=== PATIENT | female | born 1950 | race Caucasian/White ===

== ENCOUNTER 2017-12-12 08:43 | Inpatient (IN) | payer OTHER ==
[~2017-12-12] VITALS: Ht 167.6 cm; Wt 124.6 kg
--- NOTE | ~2017-12-12 | HC ---
[facility] [place] [address] CONSULTATION Name: EDWAR MARCUS Room #: 206-P ADM IN M.R.#: [id number] Admission: 12/12/17 Attend Phys: Brenda Logan Discharge: Date of : 52 Report #: [id number] THIS REPORT FOR: //name// CC: FAM unknown Brenda Logan ORTHOPEDIC CONSULT NOTE REASON FOR CONSULTATION: Right diabetic heel ulcer. HISTORY OF PRESENT ILLNESS: The patient reports noting a callus few weeks ago and subsequently developed into a heel ulcer. She was treated by wound care and admitted due to foul odor and possible osteomyelitis. She subsequently had an MRI, which confirmed calcaneal osteomyelitis. She reports decreased sensation to her foot that is normal for her. PAST MEDICAL HISTORY: Significant for peripheral artery disease, coronary artery disease, diabetes with nephropathy and neuropathy. SOCIAL HISTORY: She ambulates with a walker. Her granddaughter is at her bedside. Denies smoking or drinking alcohol. MEDICATIONS: The patient's MAR was reviewed, which shows atorvastatin, hydralazine, vancomycin, lisinopril, insulin, aspirin, allopurinol, metoprolol, enoxaparin, piperacillin, tazobactam, zolpidem tartrate, nitroglycerin, hydrocodone, and Tylenol. ALLERGIES: METFORMIN. REVIEW OF SYSTEMS: NEUROLOGIC: Reports decreased sensation, but does feel pain to her right foot. MUSCULOSKELETAL: See history of right third toe amputation few years ago due to a nonhealing wound and osteomyelitis. LABORATORY STUDIES: Done on 12/12/2017 show white blood cell count 14.9, hemoglobin 10.1 and hematocrit 31.9. PHYSICAL EXAMINATION: GENERAL: The patient is alert and oriented. She interacts appropriately. Her granddaughter is at her bedside. VITAL SIGNS: Most recent vital signs show temperature of 36.6, heart rate 69, respiratory rate 20, blood pressure 180/82, pulse oximetry is 98% on room air. EXTREMITIES: Examination of the right lower extremity shows a brisk capillary refill. She has diffuse moderate edema to the leg. I am unable to palpate a posterior tibial or dorsalis pedis pulse. She does wiggle her toes. She has absence of the third toe. She has about a 6 cm black eschar at her heel with surrounding cellulitis. [address] [address] CONSULTATION Name: EDWAR MARCUS Room #: [address] [place] [address] IN M.R.#: [id number] Admission: 12/12/17 Attend Phys: Brenda Logan Discharge: Date of : 52 Report #: [id number] RADIOGRAPHS: MRI was reviewed and interpreted by myself as well as the report was reviewed, which shows calcaneal osteomyelitis and the heel ulcer. IMPRESSION AND PLAN: Right calcaneal osteomyelitis in a diabetic patient with peripheral vascular disease. My understanding plan is for her to undergo a cardiac stent with evaluation of possible stent placement in order to improve blood flow in her right lower extremity. One of my [facility] partners will then follow her this weekend and consider debridement versus below-knee amputation. I briefly discussed with the patient that I am not optimistic that she will be able to heal this wound even with some improvement in her blood flow and she may require an amputation; however, I feel it is appropriate to give her this chance. Questions were encouraged and answered to the best of my ability. By: 1816 0032 Beckie Hancock MD /nt
--- NOTE | ~2017-12-12 | PATH ---
[facility] [address] [place] [address] PATHOLOGY RPT PROCEDURE Name: MEGAN WASHINGTON Room #: 206-P ADM IN M.R.#: [id number] Admission: 12/12/17 Date of : 52 Discharge: Report #: [id number] Path Case #: [id number] LCA Accession Number: [id number] . 01 Material submitted: . RIGHT BELOW KNEE AMPUTATION . 01 Clinical history: . Osteomyelitis, right foot . 02 Diagnosis: "Right below knee amputation", amputation: - Skin and subcutaneous tissue with acute and chronic inflammation, necrosis, granulation tissue, fibrosis, fat necrosis and overlying pseudoepitheliomatous hyperplasia. - Decalcified bone with fibrosis, predominantly chronic inflammation and extensive bony remodeling. - Vessels with calcific atherosclerosis. (CLW:db; 12/19/2017) LBQ/12/19/2017 . 02 Electronically signed: . Carly Painter MD, Pathologist NPI- [id number] . 01 Gross description: . Received in a red biohazard bag labeled "Megan Washington right BKA" is a right below the knee amputation specimen measuring 21.1 cm heel to toe and 34.8 cm heel to skin resection margin. Protruding from the resection margin is the fibula, 6.4 cm in length and tibia, 3.4 cm in length. The skin/bone margins appear grossly viable. Four toes are present with the middle toe absent. The remaining toes have nails which are yellow-staton, thickened, and flaky. The skin is pink with a black, mummified ulcer on the heel measuring 7.0 x 4.7 cm which extends to within 24.1 cm of the nearest resection margin. No additional lesions are identified. Sectioning the arteries reveals marked calcifications. Flooring Sales Manager sections are submitted as follows: . A1: Skin and soft tissue margin A2: Mummified lesion A3: Proximal bone marrow A4: Bone deep to lesion, decalcification A5: Arteries, decalcification (SDY; 12/18/2017) SYU/SYU . [address] [place] [address] PATHOLOGY RPT PROCEDURE Name: MEGAN WASHINGTON Room #: 206-P ADM IN M.R.#: [id number] Admission: 12/12/17 Date of : 52 Discharge: Report #: [id number] Path Case #: [id number] Performed at: [address], [place], [place] [id number] MD Roney Lindquist MD Phone: [phone] Performed at: [address] [id number] MD Tamara Parish MD Phone: [phone]
--- NOTE | ~2017-12-12 | O ---
[facility] [place] [address] OPERATIVE REPORT Name: EDWAR MARCUS Room #: 206-P ADM IN M.R.#: [id number] Admission: 12/12/17 Attend Phys: Brenda Logan Discharge: Date of : 52 Report #: [id number] THIS REPORT FOR: //name// CC: FAM unknown Brenda Logan DATE OF SERVICE: 12/16/2017 SERVICE: Orthopedics. FACILITY: [facility]. SURGEON: Milton Verma MD HEALTH INSURANCE AGENT: None. PREOPERATIVE DIAGNOSES: 1. Gangrene, right foot. 2. Calcaneal osteomyelitis, right foot. POSTOPERATIVE DIAGNOSES: 1. Gangrene, right foot. 2. Calcaneal osteomyelitis, right foot. PROCEDURE: Right below knee amputation. COMPLICATIONS: None. DRAINS: One Hemovac. SPECIMENS: Leg was sent for pathology. ESTIMATED BLOOD LOSS: 1000 mL. HISTORY: The patient is a 67-year-old female with multiple medical comorbidities and a chronic nonhealing wound on the right foot that had evolved to osteomyelitis with both dry and wet gangrene of the heel. She had pursued extensive conservative treatments and ultimately amputation was recommended as the best option. She considered this and then decided to proceed with the surgery and gave full informed consent. Risks include but not limited to pain, bleeding, infection, wound healing complications, stiffness, need for further surgery including revision as well as complications related to anesthesia such as stroke, heart attack, pulmonary complications, thromboembolic disease and . Despite these risks, she wished to proceed. PROCEDURE IN DETAIL: After right leg was correctly identified as the operative [facility] [address] [place] [address] OPERATIVE REPORT Name: EDWAR MARCUS Room #: 206-P ADM IN M.R.#: [id number] Admission: 12/12/17 Attend Phys: Brenda Logan Discharge: Date of : 52 Report #: [id number] extremity, the patient underwent placement of regional nerve blocks of the femoral and popliteal nerves by Anesthesia with goal to minimize the general anesthetic load for her considering her cardiac condition. She was then taken to the operating room and placed supine on operating table, padded appropriately. Prophylactic antibiotics were administered at appropriate time. A tourniquet was applied to the right thigh. Right leg was prepped and draped in standard sterile fashion. Time-out procedure was performed. The leg was elevated for exsanguination and then the tourniquet was inflated initially to 250 mmHg, but she was having some continued drainage and seepage, so eventually elevated to 350. This was performed after the time-out was completed. A skin incision was drawn on the right leg proximal to the venous stasis dermatitis that is present in the distal aspect of the leg and then the skin incision was made in a typical fashion. Dissection was taken down to the layer of the fascia with electrocautery, obtaining hemostasis as the patient had quite a few very large veins in the subcutaneous fat, which bled readily venous blood and were retaining a significant volume of blood. So, I diligently dissected out these vessels individually & obtained hemostasis during the procedure. The tibia was then exposed, periosteum was retracted proximally and then the tibial cut was made in a typical fashion. Dissection was taken down through the muscles of the anterior and lateral compartments until the fibula was visualized and the tibia was transected as well and the large vessel bundles in the leg were ligated with #1 silk ties and nerves were transected sharply. The posterior soft tissue flap was then cut in a typical fashion after the bone was transected and then there some debulking was performed and then the leg was fully removed. At this point, the wound was irrigated and then the posterior gastroc flap was brought over the distal aspect of the tibia and 0 Vicryl sutures were used to close the posterior muscle flap over the end of the tibia over a drain. After that was completed, the skin was closed with 2-0 Vicryl sutures followed by 3-0 nylon sutures in a diagonal mattress suture fashion. A sterile dressing was applied followed by compression dressing and a knee immobilizer. The patient was then awakened by the Anesthesia and taken to recovery room in stable condition. There were no complications. All counts were recorded as correct. <ELECTRONICALLY SIGNED> By: Milton Verma MD 12/16/17 1611 1223 1256 Milton Verma MD /nt
--- NOTE | ~2017-12-12 | HC ---
[facility] [place] [address] CONSULTATION Name: EDWAR MARCUS Room #: 206-P ADM IN M.R.#: [id number] Admission: 12/12/17 Attend Phys: Brenda Logan Discharge: Date of : 52 Report #: [id number] THIS REPORT FOR: //name// CC: FAM unknown Brenda Logan DATE OF SERVICE: 12/18/2017 NEPHROLOGY CONSULTATION ATTENDING PHYSICIAN: Dr. Logan. REASON FOR CONSULTATION: Acute kidney injury. HISTORY OF PRESENT ILLNESS: A 67-year-old patient with longstanding diabetes, peripheral vascular disease and peripheral neuropathy. She has had difficulty with bilateral foot ulcers in the past. Most recently, she had severe right foot ulcer with calcaneal osteomyelitis. She underwent angiographic procedure with atherectomy and stent placement to the vasculature of the right lower extremity and underwent a right [id number]-[id number]-[id number] amputation 2 days ago. She has had also an angiogram done approximately 1 week ago, which was a coronary angiogram showing multivessel severe coronary artery disease. Her serum creatinine was 1.3 at the time of admission, it has gradually risen and this has been also accompanied by a gradual decrease in her peripheral blood pressures. Creatinine was 1.3 three days ago, then 1.7 up to 2.2 yesterday, and 2.6 today. Potassium has risen from 4.4 to 6.1. PAST MEDICAL HISTORY: Appears to have underlying chronic kidney disease with a baseline creatinine of 1.3-1.4. She did have proteinuria on her initial evaluation, not quantitated. She has had hypertension. She has multivessel coronary disease as mentioned above, previous appendectomy, hysterectomy, cholecystectomy and previous diabetic foot ulcers as mentioned. FAMILY HISTORY: Strongly positive for coronary artery disease. She has a sister on dialysis. Multiple family members with diabetes and hypertension in a sister who had a heart transplant and . SOCIAL HISTORY: No history of cigarettes or alcohol. She is and lives alone. REVIEW OF SYSTEMS: GENERAL: She has been feeling poorly. EYES: Her vision is fair. She has not had known retinopathy. She has had cataract surgery. ENT: Hearing okay, swallows okay. No mouth ulcers. ENDOCRINE: Positive for the diabetes. [facility] [address] [place] [address] CONSULTATION Name: EDWAR MARCUS Room #: [address] [place] [address] IN M.R.#: [id number] Admission: 12/12/17 Attend Phys: Brenda Logan Discharge: Date of : 52 Report #: [id number] RESPIRATORY: Easily short winded with exertion in the past. CARDIAC: No chest pain. She does get swelling in her legs. GASTROINTESTINAL: Appetite has been somewhat poor, but no nausea, vomiting or diarrhea. GENITOURINARY: No dysuria, reasonably good stream. No kidney stones or hematuria. NEUROLOGIC: She has got numbness and neuropathy in the feet. PSYCHIATRIC: No depression or anxiety. HOME MEDICATIONS: Include aspirin 325 mg daily, atorvastatin 20 mg daily, cefazolin 1 gram daily, clopidogrel 75 mg daily, Lovenox 30 mg at bedtime, hydrocodone p.r.n., insulin, metoprolol tartrate 100 mg b.i.d., amlodipine 10 mg daily, lisinopril 20 mg daily. PHYSICAL EXAMINATION: GENERAL: This is an overweight, somewhat ill-appearing woman, giving a reasonably good and lucid history, also taken from the electronic medical record. SKIN: Unremarkable. SKELETAL: Right below-knee amputation noted. HEENT: Extraocular movements are full. Vision intact. No scleral icterus. Hearing intact. Mucous membranes are moist. Tongue and buccal mucosa benign. NECK: Veins are flat. CHEST: Clear to auscultation. HEART: Regular. ABDOMEN: Soft and completely nontender. EXTREMITIES: Show some brawny edema of the left leg amputation site on the right. NEUROLOGIC: Shows some numbness in the left foot. LABORATORY DATA: Hemoglobin 6.8, white count 14.1. Glucose is 248. Sodium 134, potassium 6.1, chloride 103, bicarbonate 23, creatinine 2.6, BUN 46, calcium 7.9, phosphorus 6.7. ASSESSMENT AND PLAN: 1. Acute kidney injury. She has some chronic kidney disease, some proteinuria, likely underlying diabetic nephropathy, now acute kidney injury. She has had two dye loads. She has had pretty drastic lowering of her mean arterial pressure. She has been on a converting enzyme inhibitor, all of which are probably contributing to acute renal injury. Lisinopril has been stopped. I will give her some gentle IV fluids, stop the Norvasc and try to get her blood pressure up a little bit. The treatment of the elevated glucose along with the Kayexalate should lower her potassium satisfactorily. Her EKG does not show any serious hyperkalemic changes. I expect her to improve here over the next few days and we will follow her closely. 2. Status post right BKA. [facility] [address] [place] [address] CONSULTATION Name: EDWAR MARCUS Room #: 206-P [facility] IN M.R.#: [id number] Admission: 12/12/17 Attend Phys: Brenda Logan Discharge: Date of : 52 Report #: [id number] 3. Severe multivessel coronary artery disease. 4. Diabetes mellitus with neuropathy and nephropathy. 5. Severe peripheral vascular disease. <ELECTRONICALLY SIGNED> By: Bart Hills MD 12/20/17 1022 0934 1230 Bart Hills MD /nt
--- NOTE | ~2017-12-12 | HC ---
[facility] [place] [address] CONSULTATION Name: EDWAR MARCUS Room #: 206-P ADM IN M.R.#: [id number] Admission: 12/12/17 Attend Phys: Brenda Logan Discharge: Date of : 52 Report #: [id number] THIS REPORT FOR: //name// CC: FAM unknown Brenda Logan DATE OF SERVICE: 12/13/2017 CHIEF COMPLAINT: Right heel ulceration. HISTORY OF PRESENT ILLNESS: This is a 67-year-old female patient with a history of diabetes mellitus and known peripheral arterial disease, who has had multiple small ulcerations to her right foot and history of osteomyelitis in the past. She has had previous right third toe amputation, which has healed well. Over the last at least several weeks, possibly months, she has developed a small ulceration on her right heel; however, it has become progressively necrotic and malodorous. She was initially followed at an [facility] and has now been referred for more definitive care here. The patient does complain of significant pain involving her foot. She states that the pain has become almost unrelenting. She has been taking oral Bactrim, although a little improvement has been noted. PAST MEDICAL HISTORY: Positive for history of type 2 diabetes mellitus with peripheral neuropathy. She has a history of coronary artery disease, history of peripheral vascular disease, although she was noted to have multilevel stenoses including 70% tibioperoneal stenosis and possible right SFA stenosis. No intervention has yet been undertaken. She as well has a history of the diabetic ulceration as detailed above. CURRENT MEDICATIONS: Include Bactrim, insulin, aspirin, lisinopril, allopurinol, vancomycin, enoxaparin, Zosyn, zolpidem, nitroglycerin. ALLERGIES: METFORMIN. SOCIAL HISTORY: Negative for alcohol or tobacco use. FAMILY HISTORY: Noncontributory. REVIEW OF SYSTEMS: CONSTITUTIONAL: The patient denies fever, chills or weight loss. NEUROLOGICAL: The patient has peripheral neuropathy. Denies focal weakness, numbness, tingling. EYES: The patient denies visual changes, redness or drainage. ENT: The patient denies earache, nasal drainage or sore throat. CARDIOVASCULAR: The patient denies chest pain, palpitations, diaphoresis. PULMONARY: The patient denies cough or shortness of breath. [address] [address] CONSULTATION Name: EDWAR MARCUS Room #: [address] [place] [address] IN M.R.#: [id number] Admission: 12/12/17 Attend Phys: Brenda Logan Discharge: Date of : 52 Report #: [id number] GASTROINTESTINAL: The patient denies nausea, vomiting or abdominal pain. ORTHOPEDIC: The patient complained of significant pain and drainage and necrosis involving her right foot, specifically the heel area. Other systems in a 14-point review of systems are negative. PHYSICAL EXAMINATION: VITAL SIGNS: At this time include pulse rate 69, respiration 20, blood pressure 180/82, temperature 97.8. HEENT: Normocephalic. NOSE AND THROAT: Clear. LUNGS: Clear. HEART: Regular rhythm. ABDOMEN: Bowel sounds present. Examination of the abdomen is soft and nontender. EXTREMITIES: Lower extremities demonstrate nonpalpable distal pulses, pink. SKIN: [place], warm and dry. She has 2 to 3+ edema in both lower extremities, more so on the right than the left. She has a surgically absent right third toe that appears to have healed well. She has a very large ulceration involving her right heel, it is covered with a moist eschar. There is moderate odor and it is very tender at the ulceration as well as in the surrounding region. NEUROLOGIC: She is alert and oriented and appropriate. Moving all 4 extremities spontaneously. LABORATORY DATA: Includes sodium 130, potassium 4.5, chloride 95, CO2 27, BUN 22, creatinine 1.4, glucose 298. Total bilirubin 0.2, calcium is 9.3, alkaline phosphatase 111, SGPT is 10, total protein 7.1, albumin 2.1. White blood cell count is 14.9, hemoglobin 10.1, hematocrit 31.9, platelet count is 325,000. Sed rate is very elevated at 118. TSH is 2.37. Wound cultures obtained at the bedside today, result is obviously pending at this time. MRI of the right foot demonstrates osteomyelitis involving the plantar surface of the calcaneus at the plantar aponeurosis with adjacent ulceration, reticular subcutaneous edema and soft tissue gas. No underlying well-defined abscess is seen. CLINICAL IMPRESSION: 1. Diabetic and arterial based ulceration of the right posterior heel. 2. Diabetic foot infection, Andrade grade 3. 3. Peripheral arterial disease by history and clinical examination. 4. Coronary artery disease by history. RECOMMENDATIONS: At this point in time, agree with broad-spectrum antimicrobial coverage. She will clearly need debridement; however, the debridement required may be extensive and leave her with a nonfunctional foot and may actually better benefit from igher level amputations at the below knee region. We will ask Interventional Radiology to see her with regard to possible percutaneous revascularization. She is being followed by Cardiology as well regarding further evaluation and treatment of her coronary artery disease. We will [address] [address] CONSULTATION Name: EDWAR MARCUS Room #: 206-P ADM IN M.Savita.#: [id number] Admission: 12/12/17 Attend Phys: Brenda Logan Discharge: Date of : 52 Report #: [id number] recommend aggressive nutritional support for optimal glycemic control and maximum wound healing. Recommend Prevalon boots while in bed. All questions have been answered. The patient is reluctant, but is agreeable to considering a below-knee amputation should we find that the foot is not salvageable. I do appreciate being asked to see her in consultation. We will follow her closely here in the hospital. <ELECTRONICALLY SIGNED> By: Michael Rincon MD 12/17/17 0819 1621 08 Michael Rincon MD /nt
--- NOTE | ~2017-12-12 | CATHLAB ---
[facility] [address] [place] [address] INVASIVE PROCEDURE REPORT Name: EDWAR MARCUS Room #: 206-P ADM IN M.R.#: [id number] Admission: 12/12/17 Attend Phys: Brenda Zuluaga Discharge: Date of : 52 Date of Service: 12/17/17 1031 Report #: [id number] THIS REPORT FOR: //name// APPROVED REPORT Study performed: 12/14/2017 12:23:21 Patient Details Patient Status: In-Patient Room #: The patient is a 67 year-old female Event Personnel Luis Burnett MD; Shad Lugo; Octavia Laird; Nisha Cochran; Chris Ness Procedures Performed Art Access - R femoral artery* 05191 Initial Mod Sed Same Phys/QHP Gr5y [id number] Left Heart Cath w/or w/o Coronaries [id number] C Hemostasis w/ Mynx Indication Chest pain Procedure Narrative The patient was brought urgently to the Cardiac Catheterization Laboratory and was prepped and draped in a sterile manner. The LFG^ was infiltrated with 1% Lidocaine subcutaneous anesthesia. A 6 fr sheath sheath was inserted into the LFA. Coronary angiography was performed using coronary diagnostic catheters. The right coronary system was accessed and visualized with a JR 4 catheter. The left coronary system was accessed and visualized with a JL 4 catheter. The left ventricle was accessed and visualized with a Pigtail catheter. Left ventricular/Aortic Valve gradient assessed via catheter pullback. Closure device was deployed with a 6 Fr Mynx. The patient tolerated the procedure well and there were no complications associated with the procedure. There was no hematoma. Intraoperative Conscious Sedation Sedation start time: 12:48 Case end Time: 12:55 Versed 1 mg Fluoro Time: 1.10 minutes Dose: DAP 3003.50 cGycm2 420 mGy Contrast Type and Amount: Omnipaque 50 ml [facility] [place] [address] INVASIVE PROCEDURE REPORT Name: AMRITEDWAR GIORDANO Room #: 206-P [facility] IN ..#: [id number] Admission: 12/12/17 Attend Phys: Brenda Zuluaga Discharge: Date of : 52 Date of Service: 12/17/17 1031 Report #: [id number] Coronary Angiography The patient's coronary anatomy is right dominant. Diagnostic Cath Left Main Normal origin and caliber bifurcates into left anterior descending left circumflex. There is a significant distal lesion involving the origin of the circumflex and LAD which appears to be at least 70% this area is highly calcified LAD Small-caliber vessel diffusely diseased has a significant greater than 75% lesion in its ostium. Then continues on giving rise to small diagonal branches towards the apex and the anterior interventricular sulcus with moderate to diffuse lesions noted throughout its course Diagonal 1 Small-caliber vessel with diffuse coronary disease noted Circumflex Small-caliber vessel normal origin has a proximal 70% lesion noted which is calcified. It then continues on terminating a small lateral wall marginal branches which are less than half a millimeter in diameter is diffuse disease OM1 Small highly disease OM2 Small highly disease Right Coronary Caliber vessel normal origin procedures in the AV groove there is there is a 75% eccentric lesion in proximal course. It gives her to small marginal branches which is diffusely diseased. Then continues posteriorly to the crux of the heart reveals rise to posterior descending artery and posterior wall branch R PDA Small-caliber vessel with mild irregularities noted in the proximal stenotic lesion of under 50%. It then courses in the posterior interventricular sulcus towards the apex with diffuse mild to moderate irregularities RPLV Mall caliber vessel diffusely disease at less than 50% Left Ventriculography Left Ventriculography was not performed. Hemodynamics The aortic pressure is 175/85 mmHg with a mean of 123 mmHg. The left ventricular pressure is 188/30 mmHg with a mean of mmHg. The left ventricular end diastolic pressure is 49 mmHg. Conclusion 1. Coronary disease severe involving the left main and ostial left circumflex and left anterior descending artery 2. Abnormal hemodynamic elevated liver ventricular end-diastolic [facility] [address] [place] [address] INVASIVE PROCEDURE REPORT Name: EDWAR MARCUS Room #: 206-P ADM IN M.R.#: [id number] Admission: 12/12/17 Attend Phys: Brenda Zuluaga Discharge: Date of : 52 Date of Service: 12/17/17 1031 Report #: [id number] Recommendations CABG <ELECTRONICALLY SIGNED> By: Luis Burnett MD 12/17/171030 30 30 Luis Burnett MD /INF
[2017-12-12 14:15] VITALS: BP 175/86
[2017-12-12 15:13] LABS: HEMATOCRIT 31.9 % (37.0-47.0); HEMOGLOBIN 10.1 gm/dL (12.0-15.0); MCH 25.3 pg (26.0-34.0); MCHC 31.8 g/dL (28.0-37.0); MCV 79.5 fL (80.0-100.0); RBC 4.01 mil/uL (4.20-5.00); RDW 19.6 % (10.5-14.5); WBC 14.9 thou/uL (4.0-11.0)
[2017-12-12 15:24] LABS: CALCIUM 9.3 mg/dL (8.5-10.1); CREATININE 1.4 mg/dL (0.6-1.0); POTASSIUM 4.5 mmol/L (3.5-5.1)
[2017-12-12 15:29] LABS: ALBUMIN 2.1 g/dL (3.4-5.0); TOTAL BILIRUBIN 0.2 mg/dL (<0.1-1.0); TOTAL PROTEIN 7.1 g/dL (6.4-8.2)
[2017-12-12 15:31] LABS: CHOLESTEROL 162 mg/dL (<200); HDL CHOLESTEROL 44 mg/dL (>40); LDL CHOLESTEROL 98 mg/dL (<100); TC:HDL 3.7 Ratio (Not establshd); TRIGLYCERIDE 100 mg/dL (<150); VLDL 20 mg/dL (<40)
[2017-12-12 15:35] LABS: SERUM ASSESSMENT Clear
[2017-12-12] MEDS ORDERED: NORVASC5 MG PO (15:49)
[2017-12-12] MEDS ORDERED: ALLOPURINOL 10100 M1 PO (15:49)
[2017-12-12] MEDS ORDERED: ADULT ASPIRIN81 MG PO (15:50)
[2017-12-12] MEDS ORDERED: BACTRIM 400-801 EACH PO (15:51)
[2017-12-12] MEDS ORDERED: BACTROBAN CREAM30 G1 TOP (15:52)
[2017-12-12] MEDS ORDERED: LASIX 40 MG TAB40 M2 PO (15:52)
[2017-12-12] MEDS ORDERED: FOSAMAX 70 MG T70 MG PO (15:52)
[2017-12-12] MEDS ORDERED: LISINOPRIL20 MG PO (15:53)
[2017-12-12] MEDS ORDERED: HYDROCODONE-AP1 EAC6 PO (15:53)
[2017-12-12] MEDS ORDERED: LOPRESSOR100 M1 PO (15:54)
[2017-12-12] MEDS ORDERED: LOVASTATIN 20 M20 MG PO (15:54)
[2017-12-12 15:57] LABS: TSH 2.377 uIU/mL (0.358-3.740)
[2017-12-12] MEDS ORDERED: NOVOLOG100 UNIT/1 SUBQ (16:02)
[2017-12-12] MEDS ORDERED: LEVEMIR SUBQ (16:03)
[2017-12-12 16:05] VITALS: BP 173/79
[2017-12-12 20:12] VITALS: BP 152/68
[2017-12-12 20:24] LABS: URINE BILIRUBIN NEGATIVE (Negative); URINE BLOOD 1+ (Negative); URINE CLARITY CLEAR; URINE COLOR YELLOW; URINE GLUCOSE-RANDOM* 2+ (Negative); URINE KETONES NEGATIVE (Negative); URINE LEUKOCYTES NEGATIVE (Negative); URINE NITRITE NEGATIVE (Negative); URINE PROTEIN (DIPSTICK) 2+ (Negative); URINE UROBILINOGEN 0.2 E.U./dl (0.2-1.0)
[2017-12-13 03:47] VITALS: BP 163/72
[2017-12-13 04:07] LABS: GLYCOHEMOGLOBIN (HGB A1C) 10.7 % (4.8-5.6)
[2017-12-13 07:50] VITALS: BP 172/67
[2017-12-13 11:44] VITALS: BP 142/64
[2017-12-13 15:26] VITALS: BP 180/82
[2017-12-13 19:18] VITALS: BP 148/59
[2017-12-14 00:19] VITALS: BP 151/64
[2017-12-14 04:56] VITALS: BP 164/65
[2017-12-14 07:35] VITALS: BP 176/90
[2017-12-14 19:16] VITALS: BP 149/69
[2017-12-15 00:08] VITALS: BP 117/44
[2017-12-15 04:36] LABS: HEMATOCRIT 28.9 % (37.0-47.0); HEMOGLOBIN 9.1 gm/dL (12.0-15.0); MCH 25.3 pg (26.0-34.0); MCHC 31.7 g/dL (28.0-37.0); MCV 79.9 fL (80.0-100.0); RBC 3.61 mil/uL (4.20-5.00); RDW 19.8 % (10.5-14.5); WBC 13.1 thou/uL (4.0-11.0)
[2017-12-15 04:47] LABS: ALBUMIN 1.7 g/dL (3.4-5.0); CALCIUM 8.5 mg/dL (8.5-10.1); CREATININE 1.3 mg/dL (0.6-1.0); PHOSPHORUS 4.5 mg/dL (2.5-4.9); POTASSIUM 4.4 mmol/L (3.5-5.1)
[2017-12-15 05:37] VITALS: BP 154/69
[2017-12-15 08:16] VITALS: BP 175/66
[2017-12-15 11:40] VITALS: BP 147/60
[2017-12-15 16:00] VITALS: BP 135/57
[2017-12-15 19:23] VITALS: BP 142/75
[2017-12-16] VITALS (11 sets, daily range): BP systolic 107–154; BP diastolic 43–63
[2017-12-16 04:54] LABS: HEMATOCRIT 27.4 % (37.0-47.0); HEMOGLOBIN 8.8 gm/dL (12.0-15.0); MCH 25.6 pg (26.0-34.0); MCHC 32.2 g/dL (28.0-37.0); MCV 79.6 fL (80.0-100.0); RBC 3.43 mil/uL (4.20-5.00); RDW 19.6 % (10.5-14.5); WBC 11.5 thou/uL (4.0-11.0)
[2017-12-16 05:28] LABS: ALBUMIN 1.7 g/dL (3.4-5.0); CALCIUM 8.6 mg/dL (8.5-10.1); CREATININE 1.7 mg/dL (0.6-1.0); PHOSPHORUS 4.7 mg/dL (2.5-4.9); POTASSIUM 4.5 mmol/L (3.5-5.1)
[2017-12-16 06:28] LABS: APTT 26.1 Seconds (24.5-32.8); PROTIME 9.7 Seconds (9.3-11.4)
[2017-12-16 16:00] LABS: HEMATOCRIT 24.4 % (37.0-47.0); HEMOGLOBIN 7.8 gm/dL (12.0-15.0)
[2017-12-17] VITALS (7 sets, daily range): BP systolic 86–133; BP diastolic 32–65
[2017-12-17 04:02] LABS: ALBUMIN 1.5 g/dL (3.4-5.0); CALCIUM 8.1 mg/dL (8.5-10.1); CREATININE 2.2 mg/dL (0.6-1.0); PHOSPHORUS 5.9 mg/dL (2.5-4.9); POTASSIUM 5.2 mmol/L (3.5-5.1)
[2017-12-17 04:04] LABS: TROPONIN-I 0.91 ng/mL (<0.06)
[2017-12-17 04:08] LABS: HEMATOCRIT 18.9 % (37.0-47.0); HEMOGLOBIN 6.3 gm/dL (12.0-15.0)
[2017-12-17 10:17] LABS: HEMATOCRIT 21.6 % (37.0-47.0); HEMOGLOBIN 7.1 gm/dL (12.0-15.0)
[2017-12-17 22:02] LABS: HEMATOCRIT 21.6 % (37.0-47.0); HEMOGLOBIN 7.1 gm/dL (12.0-15.0)
[2017-12-18] VITALS (8 sets, daily range): BP systolic 86–124; BP diastolic 35–71
[2017-12-18 04:10] LABS: HEMOGLOBIN 6.8 gm/dL (12.0-15.0); WBC 14.1 thou/uL (4.0-11.0)
[2017-12-18 04:11] LABS: HEMATOCRIT 21.1 % (37.0-47.0); MCH 27.1 pg (26.0-34.0); MCHC 32.4 g/dL (28.0-37.0); MCV 83.6 fL (80.0-100.0); RBC 2.53 mil/uL (4.20-5.00); RDW 18.2 % (10.5-14.5)
[2017-12-18 04:31] LABS: ALBUMIN 1.7 g/dL (3.4-5.0); CALCIUM 7.9 mg/dL (8.5-10.1); CREATININE 2.6 mg/dL (0.6-1.0); PHOSPHORUS 6.7 mg/dL (2.5-4.9)
[2017-12-18 04:33] LABS: POTASSIUM 6.1 mmol/L (3.5-5.1)
[2017-12-18 14:20] LABS: HEMATOCRIT 24.8 % (37.0-47.0); HEMOGLOBIN 8.2 gm/dL (12.0-15.0)
[2017-12-19 03:47] LABS: ABSOLUTE NEUTROPHILS 11.2 thou/uL (1.4-8.2); BASOPHILS 0.8 % (0.0-2.0); EOSINOPHILS 1.4 % (0.0-3.0); HEMATOCRIT 23.9 % (37.0-47.0); HEMOGLOBIN 7.8 gm/dL (12.0-15.0); MCH 27.4 pg (26.0-34.0); MCHC 32.8 g/dL (28.0-37.0); MCV 83.7 fL (80.0-100.0); MONOCYTES 7.3 % (1.0-8.0); PLATELET COUNT 373 thou/uL (150-400); POLYS 80.5 % (36.0-66.0); RBC 2.86 mil/uL (4.20-5.00); RDW 18.1 % (10.5-14.5); WBC 13.9 thou/uL (4.0-11.0)
[2017-12-19 03:54] LABS: ALBUMIN 1.7 g/dL (3.4-5.0); CALCIUM 8.1 mg/dL (8.5-10.1); CREATININE 2.3 mg/dL (0.6-1.0); PHOSPHORUS 6.3 mg/dL (2.5-4.9); POTASSIUM 4.6 mmol/L (3.5-5.1)
[2017-12-19 04:24] VITALS: BP 129/56
[2017-12-19 07:49] VITALS: BP 139/66
[2017-12-19] MEDS ORDERED: CLOPIDOGREL75 MG PO (09:18)
[2017-12-19] MEDS ORDERED: KEFLEX500 M1 PO (09:18)
[2017-12-19] MEDS ORDERED: LANTUS100 UNIT/M SUBQ (09:19)
[2017-12-19] MEDS ORDERED: ACETAMINOPHEN325 M1 PO (09:19)
[2017-12-19] MEDS ORDERED: MIRALAX17 GM PO (09:19)
[2017-12-19] MEDS ORDERED: NOVOLOG100 UNIT/1 SUBQ ×2 (09:19)
[2017-12-19] MEDS ORDERED: LYRICA 50 MG50 MG PO (09:20)
[2017-12-19 11:31] VITALS: BP 143/73
[2017-12-19 15:42] VITALS: BP 115/51
[2017-12-19 19:30] VITALS: BP 152/74
[2017-12-20 03:57] LABS: ALBUMIN 1.7 g/dL (3.4-5.0); CREATININE 1.7 mg/dL (0.6-1.0); PHOSPHORUS 5.4 mg/dL (2.5-4.9); POTASSIUM 5.2 mmol/L (3.5-5.1)
[2017-12-20 04:40] VITALS: BP 147/59
[2017-12-20 07:35] VITALS: BP 122/72
== END 2017-12-20 10:43 | DRG 853 ==
LOC: CATH 08:43 → EDSTATUS 13:36 → 2N 13:38
PROVIDERS: Hospitalist; Internal Medicine Nephrology; Nurse Practitioner Acute Care; Orthopaedic Surgery Sports Medicine
PROC: B4181ZZ Fluoroscopy of Bilateral Renal Arteries using Low Osmolar Contrast (ICD-10-PCS; principal; 2017-12-14)
PROC: B41F1ZZ Fluoroscopy of Right Lower Extremity Arteries using Low Osmolar Contrast (ICD-10-PCS; principal; 2017-12-14)
PROC: B41G1ZZ Fluoroscopy of Left Lower Extremity Arteries using Low Osmolar Contrast (ICD-10-PCS; principal; 2017-12-14)
PROC: 04CP3ZZ Extirpation of Matter from Right Anterior Tibial Artery, Percutaneous Approach (ICD-10-PCS; principal; 2017-12-14)
PROC: 0Y6H0Z2 Detachment at Right Lower Leg, Mid, Open Approach (ICD-10-PCS; 2017-12-16)
PROC: 30233N1 Transfusion of Nonautologous Red Blood Cells into Peripheral Vein, Percutaneous Approach (ICD-10-PCS; 2017-12-16)
PROC: B2111ZZ Fluoroscopy of Multiple Coronary Arteries using Low Osmolar Contrast (ICD-10-PCS; 2017-12-17)
PROC: 4A023N7 Measurement of Cardiac Sampling and Pressure, Left Heart, Percutaneous Approach (ICD-10-PCS; 2017-12-17)
PROC: 5A09357 Assistance with Respiratory Ventilation, Less than 24 Consecutive Hours, Continuous Positive Airway Pressure (ICD-10-PCS; 2017-12-20)
DX: A41.9 Sepsis, unspecified organism (principal); E43 Unspecified severe protein-calorie malnutrition; N17.0 Acute kidney failure with tubular necrosis; E11.52 Type 2 diabetes mellitus with diabetic peripheral angiopathy with gangrene; I96 Gangrene, not elsewhere classified; I50.30 Unspecified diastolic (congestive) heart failure; I13.0 Hypertensive heart and chronic kidney disease with heart failure and stage 1 through stage 4 chronic kidney disease, or unspecified chronic kidney disease; D62 Acute posthemorrhagic anemia; Z68.41 Body mass index [BMI] 40.0-44.9, adult; R94.39 Abnormal result of other cardiovascular function study; E11.42 Type 2 diabetes mellitus with diabetic polyneuropathy; E11.622 Type 2 diabetes mellitus with other skin ulcer; E11.69 Type 2 diabetes mellitus with other specified complication; N18.9 Chronic kidney disease, unspecified; E78.5 Hyperlipidemia, unspecified; M19.90 Unspecified osteoarthritis, unspecified site; M81.0 Age-related osteoporosis without current pathological fracture; J44.9 Chronic obstructive pulmonary disease, unspecified; Z60.2 Problems related to living alone; E11.621 Type 2 diabetes mellitus with foot ulcer; L89.152 Pressure ulcer of sacral region, stage 2; I70.213 Atherosclerosis of native arteries of extremities with intermittent claudication, bilateral legs; L89.302 Pressure ulcer of unspecified buttock, stage 2; E87.5 Hyperkalemia; E66.01 Morbid (severe) obesity due to excess calories; E11.22 Type 2 diabetes mellitus with diabetic chronic kidney disease; G47.33 Obstructive sleep apnea (adult) (pediatric); Z88.8 Allergy status to other drugs, medicaments and biological substances; Z90.49 Acquired absence of other specified parts of digestive tract; Z82.49 Family history of ischemic heart disease and other diseases of the circulatory system; Z87.891 Personal history of nicotine dependence; Z79.82 Long term (current) use of aspirin; Z79.899 Other long term (current) drug therapy
CPT/HCPCS: 10081; 50101; 62110; 62900; 70005

== ENCOUNTER 2017-12-19 09:50 | Inpatient (IN) | payer OTHER ==
[~2017-12-19] VITALS: Ht 167.6 cm; Wt 124.5 kg
--- NOTE | ~2017-12-19 | HC ---
[facility] [place] [address] [address] [place] [address] CONSULTATION Name: EDWAR MARCUS Room #: 516-1 ADM IN M.R.#: [id number] Admission: 12/20/17 Attend Phys: Shad Ferguson MD Discharge: Date of : 52 Report #: [id number] THIS REPORT FOR: //name// CC: Shad Ferguson [facility] unknown DATE OF SERVICE: 12/29/2017 NEUROBEHAVIORAL STATUS EXAM AGE: 67. ATTENDING PHYSICIAN: Shad Ferguson MD CALENDERER: Paulo Pal, PhD CLINICAL PRESENTATION: The patient is a 67-year-old female admitted to the rehab unit at [facility] for a comprehensive inpatient rehabilitation program to improve functional mobility, activities of daily living and self-care and mental status secondary to deficits from a tnixr-nyb-nezm amputation on 12/16/2017. The patient had a nonhealing right foot ulcer and developed osteomyelitis. Her medical condition also includes severe peripheral vascular disease, status post atherectomy and angioplasty, severe 3-vessel coronary artery disease with a need for coronary artery bypass grafting, poorly controlled diabetes mellitus type 2, premorbid peripheral neuropathy, congestive heart failure and chronic lymphedema. A complete description of her medical condition, history and medications can be found in her medical record. Neuropsychological consultation was requested to provide assistance in the assessment of cognitive and emotional status and to provide recommendations and services. The patient was living independently in a mobile home prior to this most recent admission. She had one child that was killed about 9 years ago from a car accident and was 10 years ago. She has one living child. A sister lives nearby in a mobile home. The patient has been on disability because of the diabetes mellitus. 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 There is no report of prior history of treatment for depression or anxiety or alcohol/ drug abuse. TECHNIQUES UTILIZED: Clinical interview, review of medical records, staff consultation and behavioral observation, mini mental status exam 2 standard version, category fluency, brief abstract reasoning test. EXAMINATION FINDINGS: The patient was alert and cooperative with the assessment. She accurately described events surrounding her admission. There is no evidence of aphasia. Her thoughts are logical and goal oriented. There [facility] [address] [place] [address] CONSULTATION Name: EDWAR MARCUS Room #: 516-1 [facility] IN [facility].#: [id number] Admission: 12/20/17 Attend Phys: Shad Ferguson MD Discharge: Date of : 52 Report #: [id number] is no evidence of thought disorder. She does not report auditory or visual hallucinations. She describes symptoms to include tiredness and fatigue. Variability in memory is reported. She does not report difficulty with sleep, appetite or subjective depression. The patient also does not indicate feelings of anxiety. Phantom limb pain is reported as intermittent, and severe at times. Performance on the mini mental status exam reveals functioning within normal limits on the brief version. She was 3/3 for initial registration, 5/5 for orientation to time and place and 1/3 for immediate recall of 3 items after a brief time delay and distraction. Performance on the MMSE 2 standard version is in the mild range of impairment with a raw score of 24 of 30. The patient was 1 of 5 for serial 7's. She was able to copy a simple geometric design and write a sentence. Decreased upper extremity dexterity is noted. Her performance in category fluency was extremely low with a raw score of 22 and a T score of 25, which is at the 1st percentile. Brief abstract reasoning assessment was poor with a raw score of 2 of 8. The patient is presenting with deficits in higher level executive functioning. Brief abstract reasoning, attention and concentration and poor thought organization for generative speech suggests cognitive disorder. DIAGNOSTIC IMPRESSION: Neurocognitive disorder, due to medical etiology-extent to be determined, likely in the moderate range. RECOMMENDATIONS: The patient will very likely require assistance in the management of medication, finances and nutrition upon her discharge home. Increased assistance to maintain safety will be necessary during problem solving and planning. She is lacking awareness of her limitations and need for support. Follow up neuropsych assessment following stabilization of her medical condition and bypass surgery will be helpful in clarifying the severity of cognitive deficits. Thank you very much for allowing me to provide the consultation on this patient. <ELECTRONICALLY SIGNED> By: Paulo Pal, PhD 12/31/17 1815 1455 1607 Paulo Pal, PhD /nt
--- NOTE | ~2017-12-19 | D ---
[facility] [place] [address] [place] [address] DISCHARGE SUMMARY Name: EDWAR MARCUS Room #: 516-1 DIS IN M.R.#: [id number] Admission: 12/20/17 Attend Phys: Shad Ferguson MD Discharge: 01/03/18 Date of : 52 Report #: [id number] THIS REPORT FOR: //name// CC: Shad Ferguson [facility] unknown DATE OF SERVICE: 01/03/2018 HISTORY OF PRESENT ILLNESS: The patient is a 67-year-old white female with a right heel wound with calcaneal osteomyelitis, underwent right below-knee amputation on 12/19/2017. She had a preop cardiac workup, which showed severe coronary artery disease and the plan is that she will need CABG surgery once medically stable. She was admitted for acute in-hospital inpatient rehabilitation post the below knee amputation. Please see the full admission note dictation. HOSPITAL COURSE: She was followed on the acute inpatient rehab schmitz. She was given IV iron for iron deficiency anemia. She was treated for pneumonia, was noted to have acute on chronic respiratory failure secondary to volume overload with CHF exacerbation and she was given diuretics as per Nephrology. She was working in therapies with transfers utilizing the sliding board, max assist of 1 to 2, was working on short distance wheelchair mobility. Was unable to sit to stand even with max assist in upper extremity support with the parallel bars. Her course was complicated by her pulmonary condition and earlier today, she became lethargic and ABG obtained, was significantly abnormal. She was placed on CPAP without recovery and transferred to the critical care floor to be placed on BiPAP. She was diagnosed with acute hypoxic and hypercapnic respiratory failure. We will defer further medications and activity level, etc. as per the accepting service. DISCHARGE DIAGNOSES: Would include, 1. Status post below-knee amputation. 2. Acute on chronic respiratory failure. 3. Medical complexity with generalized debilitation. 4. Iron deficiency anemia. 5. Pneumonia. 6. Severe peripheral vascular disease, status post atherectomy and angioplasty. 7. Severe 3-vessel coronary artery disease, will need future coronary artery bypass grafting. 8. Poorly controlled diabetes mellitus. [facility] [address] [place] [address] DISCHARGE SUMMARY Name: AAN MARCUSJACI Barney Room #: 516-1 DIS IN M.R.#: [id number] Admission: 12/20/17 Attend Phys: Shad Ferguson MD Discharge: 01/03/18 Date of : 52 Report #: [id number] 9. Premorbid peripheral neuropathy. 10. Congestive heart failure with chronic lymphedema. <ELECTRONICALLY SIGNED> By: Shad Ferguson MD 01/04/18 1228 1250 1432 Shad Ferguson MD /nt
--- NOTE | ~2017-12-19 | H ---
[facility] [place] [address] [place] [address] HISTORY AND PHYSICAL Name: EDWAR MARCUS Room #: 516-1 ADM IN M.R.#: [id number] Admission: 12/20/17 Attend Phys: Shad Ferguson MD Discharge: Date of : 52 Report #: [id number] THIS REPORT FOR: //name// CC: Shad Ferguson [facility] unknown DATE OF SERVICE: 12/20/2017 HISTORY OF PRESENT ILLNESS: This is a 67-year-old female who originally presented to [facility] Emergency Department with a right heel wound for 2 weeks that had been unresponsive to outpatient antibiotics. She was transferred to [facility] due to chest pain reported and further workup that was required. Her MRI of the right foot found calcaneal osteomyelitis with soft tissue gas and underwent a right ecylq-fbo-ksjm amputation on 12/19/2017. Postoperatively, she had acute blood loss anemia, required transfusion. Her cardiac workup preop, she was found to have severe CAD and Cardiothoracic Surgery recommended medical management for now, that will likely need a CABG once medically stable and BKA has better healed. She did undergo a right angioplasty and atherectomy for severe PVD. Due to her general debility after her BKA, she has been admitted to inpatient rehab for physical and occupational therapies to improve her functional mobility. Today, she reports phantom limb pain in the right lower extremity. Her left leg is slightly pink and tender. She has chronic lymphedema in the left lower extremity. She reports over 3 loose to liquid bowel movements with mild abdominal upset. She denies nausea, vomiting, fever or chills. She reports some minimal shortness of breath. Denies cough or chest pain. She does have history of sleep apnea and has been noncompliant with wearing her CPAP. PAST MEDICAL HISTORY: Diabetes, lung disease, vascular disease, osteomyelitis of right foot, dyslipidemia, obstructive sleep apnea, chronic kidney disease, anemia, diastolic heart failure, osteoporosis, history of right ankle debridement. HABITS: Tobacco use, but reports has now quit. Denies illicit drug use. Rare alcohol on social occasions. SOCIAL HISTORY: She is . a few years past. She lives in a mobile home by herself. She has 3 entry stairs from the grass to the porch with handrails that are not supportive per patient. She has 2 chair lift recliners in her home. She was driving premorbidly. Premorbidly, utilized single point cane and walker. She does have family in the neighborhood and neighbors that are supportive. REVIEW OF SYSTEMS: Twelve-point review of systems negative except as listed in the HPI. [facility] [address] [place] [address] HISTORY AND PHYSICAL Name: EDWAR MARCUS Room #: 516-1 ADM IN M.R.#: [id number] Admission: 12/20/17 Attend Phys: Shad Ferguson MD Discharge: Date of : 52 Report #: [id number] PHYSICAL EXAMINATION: VITAL SIGNS: Blood pressure 122/72, respirations 18, pulse 65, temperature 96.6. She is 97% oxygen on 2 liters nasal cannula. GENERAL: She is awake, alert. She is oriented x 3. She is in no acute distress. She is on 2 liters nasal cannula. LUNGS: Clear to auscultation bilaterally. HEART: S1, S2 intact. ABDOMEN: Obese, bowel sounds positive, soft, nontender, nondistended. No rebound. GENITOURINARY: Deferred. EXTREMITIES: Left lower extremity venous stasis skin changes noted. There is some erythema that is blanchable on her pretibial; mild tenderness with palpation; lymphedema, chronic; right lower extremity BKA; has immobilizer and stump sandblasting supervisor in place. She is able to lift bilateral extremities and to gravity. Functional range of motion, upper extremities, no tremor. Left lower extremity, negative Homans sign. She is max assist for sit to stand, mod assist for bed mobility, mod assist for bathing. LABORATORY DATA: On 12/20, sodium 138, potassium 5.2, BUN 43, creatinine 1.7, calcium 8.0. On 12/19, WBC 13.9, hemoglobin 7.8, hematocrit 23.9, platelets 373. ASSESSMENT: 1. Nonhealing right foot ulcer with osteomyelitis, status post wwhsa-czm-hwgm amputation on 12/19/17. 2. Medical complexity with general debilitation. 3. Postoperative expected acute blood loss anemia. 4. Severe peripheral vascular disease, status post atherectomy and angioplasty. 5. Severe 3-vessel coronary artery disease, will need future coronary artery bypass graft. 6. Poorly controlled type 2 diabetes. Hemoglobin A1c 10%. 7. Premorbid peripheral neuropathy. 8. Congestive heart failure with chronic lymphedema. 9. Chronic kidney disease. 10. Hyperkalemia. 11. Hypotension. 12. Hyperlipidemia. 13. Degenerative joint disease. PLAN: The patient has been admitted to inpatient rehab for physical and occupational therapies to maximize her functional independence. She has no weightbearing to the right lower extremity, status post BKA. She will have daily dressing changes. She will have a stump sandblasting supervisor in place and to wear an immobilizer at all times while in bed. She is able to take immobilizer off while sitting up in the chair. She does have sacral pressure ulcer and will have wound care to follow with daily dressing changes. We will repeat [facility] and [facility] [address] [place] [address] HISTORY AND PHYSICAL Name: EDWAR MARCUS Room #: 516-1 ADM IN M.R.#: [id number] Admission: 12/20/17 Attend Phys: Shad Ferguson MD Discharge: Date of : 52 Report #: [id number] renal panel in the morning. Her hospital consultants will continue to follow. We will have a team conference on Sunday. <ELECTRONICALLY SIGNED> By: GREG Ramos 12/28/17 1420 1202 1323 GREG Ramos /nt
--- NOTE | ~2017-12-19 | H ---
[facility] [address] [place] [address] HISTORY AND PHYSICAL Name: EDWAR MARCUS Room #: 516-1 ADM IN M.R.#: [id number] Admission: 12/20/17 Attend Phys: Sahd Ferguson MD Discharge: Date of : 52 Report #: [id number] THIS REPORT FOR: //name// CC: Shad Ferguson [facility] unknown DATE OF SERVICE: 12/20/2017 PROGRESS NOTE, POST ADMISSION PHYSICIAN EVALUATION HISTORY OF PRESENT ILLNESS: The patient is a 67-year-old white female originally presented to [facility] Emergency Department, the right heel wound. She was found to have calcaneal osteomyelitis and underwent a right below knee amputation on 12/19/2017. She was noted to have severe cardiac disease during the preop workup and recommendations for medical management for now, but that she will likely need a CABG once medically stable and a BKA better healed. She has chronic lymphedema, left lower extremity. She has multiple medical comorbidities as well delineated. She has been admitted now for acute in-hospital inpatient rehabilitation. Please see the patient medical history, habits, social history; all as noted per the nurse practitioner note. REVIEW OF SYSTEMS: She denies any specific chest pain, shortness of breath or abdominal discomfort today. Did not offer any complaints of pain involving her amputation site. PHYSICAL EXAMINATION: GENERAL: She is pleasant, alert, in no obvious distress. VITAL SIGNS: Last recorded temperature 97.9, pulse 68, respirations 18 and blood pressure 152/55. CHEST: Sounds clear to auscultation. CARDIAC: Regular rate and rhythm. ABDOMEN: Bowel sounds positive, nontender. GENITOURINARY AND RECTAL: Deferred. NEUROLOGIC: Functional range of motion of both upper extremities. Strength is a grade 4-/5. She has the right lower extremity immobilizer stump wet silk hanger in place. She can lift the left lower extremity greater than gravity. Negative Homans sign. She has been max assist for sit to stand, mod assist for bed mobility, mod assist for bathing. ASSESSMENT: 1. Nonhealing right foot ulcer with osteomyelitis, status post below-knee amputation on . 2. Medical complexity with generalized debilitation. 3. Severe peripheral vascular disease, status post atherectomy and angioplasty. [address] [address] HISTORY AND PHYSICAL Name: EDWAR MARCUS Room #: 516-1 ADM IN ..#: [id number] Admission: 12/20/17 Attend Phys: Shad Ferguson MD Discharge: Date of : 52 Report #: [id number] 4. Severe 3-vessel coronary artery disease, will need future coronary artery bypass grafting. 5. Poorly controlled diabetes mellitus type 2, hemoglobin A1c 10%. 6. Premorbid peripheral neuropathy. 7. Congestive heart failure with chronic lymphedema. PLAN: Agree with the history and physical as per Chantelle nurse practitioner. From a postadmission physician evaluation perspective, there are no relevant changes since the preadmission screening. Please see the above review of prior and current medical and functional conditions and comorbidities. Please see the previous and current functional status. As far as risk of complications, the patient has multiple medical comorbidities as noted above. Initial plan of care involves the interdisciplinary acute inpatient rehabilitation program with goal of maximizing the patient's functional independence, so she can hopefully return back to her prior living situation. Measurable functional goals would be for her to become modified independent ideally with bed to chair transfers and to at least be independent at a wheelchair level initially. Prognosis is reasonably good with estimated length of stay probably at least 10 days to 2 weeks pending her progress. Potential barriers would include her multiple medical comorbidities and decreased functional status. The patient meets diagnostic criteria for an acute in-hospital inpatient rehabilitation stay. She meets the medical necessity criteria and we will have the content management consultant physicians continue to follow. She does have the tolerance for therapies and has appropriate discharge goals back to the home setting. ADDENDUM The overall plan of care is based on the preadmission screen, post-admission physician evaluation and information garnered from therapy assessments. 1. Estimated length of stay is probably at least 2 weeks pending progress. 2. Medical prognosis is reasonably good. 3. Anticipated interventions includes the interdisciplinary acute inpatient rehabilitation program with goal of maximizing her functional independence, so she can hopefully return back to her prior living situation. The interdisciplinary rehab therapy team will be involved with PT and OT, rehab nursing assisting regarding medication management, skin care prophylaxis, bowel and bladder issues and nursing education. The rest of the interdisciplinary team will be involved as well as the content management consultant physicians. 4. Anticipated functional outcomes would be to become modified independent at least at the wheelchair level. 5. Discharge destination would be back to the home setting. She is likely going to need increased assistance from family that live in the neighborhood. 6. Expected therapy by discipline includes PT and OT 1-1/2 hours per day each [facility] [address] [place] [address] HISTORY AND PHYSICAL Name: EDWAR MARCUS Room #: 516-1 ADM IN M.R.#: [id number] Admission: 12/20/17 Attend Phys: Shad Ferguson MD Discharge: Date of : 52 Report #: [id number] five days a week throughout the duration of the acute inpatient rehabilitation stay. <ELECTRONICALLY SIGNED> By: Shad Ferguson MD 12/21/17 1516 0831 0853 Shad Ferguson MD /nt
--- NOTE | ~2017-12-19 | 2DMMODE ---
[facility] [address] [place] [address] 2 D/M-MODE ECHOCARDIOGRAM Name: EDWAR MARCUS Room #: 516-1 ADM IN M.R.#: [id number] Admission: 12/20/17 Attend Phys: Shad Ferguson, Discharge: Date of : 52 Date of Service: 12/24/17 0920 Report #: [id number] THIS REPORT FOR: //name// APPROVED REPORT Study performed: 12/24/2017 07:52:12 EXAM: Comprehensive 2D, Doppler, and color-flow Echocardiogram Patient Location: Bedside Room #: 516 Status: routine BSA: 2.27 HR: 60 bpm BP: 140/72 mmHg Other Information Study Quality: Adequate Indications Diabetes CAD SOB Echo Enhancing Agent Indication: Endocardial border delineation Agent(s) / Amount(s) Used: Optison 4 cc 2D Dimensions RVDd: 35.37 mm LVEF(%): 41.79 (>50%) IVSd: 13.49 (7-11mm) LVOT Diam: 19.57 (18-24mm) LVDd: 50.27 mm PWd: 13.11 (7-11mm) Ascending Ao: 26.41 (22-36mm) LVDs: 39.93 (25-40mm) Aortic Root: 26.16 mm IVC: 28.00 mm Harvey's LVEF: 41.79 % Volumes Left Atrial Volume (Systole) Single Plane 4CH: 70.10 mL Single Plane 2CH: 56.46 mL LA ESV Index: 30.00 mL/m2 Aortic Valve AoV Peak John.: 1.27 m/s AO Peak Gr.: 6.47 mmHg LVOT Max P.86 mmHg LVOT Max V: 0.85 m/s [facility] [address] [place] [address] 2 D/M-MODE ECHOCARDIOGRAM Name: AMRITEDWAR GIULIANA Room #: 5161 ADM IN M.R.#: [id number] Admission: 12/20/17 Attend Phys: Shad Ferguson, Discharge: Date of : 52 Date of Service: 12/24/17 0920 Report #: [id number] LULU Vmax: 2.00 cm2 Mitral Valve E/A Ratio: 2.4 MV Decel. Time: 324.83 ms MV E Max John.: 1.71 m/s MV A John.: 0.72 m/s MV PHT: 94.20 ms IVRT: 44.98 ms Pulmonary Valve PV Peak John.: 0.91 m/s PV Peak Gr.: 3.31 mmHg Pulmonary Vein P Vein S: 0.29 m/s P Vein A: 0.23 m/s P Vein D: 0.69 m/s P Vein A Dur.: 103.8 msec P Vein S/D Ratio: 0.42 Tricuspid Valve TR Peak John.: 3.36 m/s RAP Estimate: 15.00 mmHg TR Peak Gr.: 45.22 mmHg PA Pressure: 60.00 mmHg Left Ventricle The left ventricle is normal size. Mild concentric left ventricular hypertrophy. Left ventricular systolic function is mild to moderately decreased. LVEF 40-45%. Severe diastolic dysfunction is present (restrictive filling). Right Ventricle The right ventricle is normal size. The right ventricular systolic function is normal. Atria The left atrium size is normal. The right atrium size is normal. Aortic Valve Mild aortic valve sclerosis. No aortic regurgitation is present. There is no aortic valvular stenosis. Mitral Valve Moderate mitral annular calcification. Moderate mitral regurgitation. No evidence of mitral valve stenosis[place] [address] 2 D/M-MODE ECHOCARDIOGRAM Name: EDWAR MARCUS Room #: 516-1 ADM IN M.R.#: [id number] Admission: 12/20/17 Attend Phys: Shad Ferguson, Discharge: Date of : 52 Date of Service: 12/24/17 0920 Report #: [id number] The tricuspid valve is normal in structure. Mild tricuspid regurgitation. PAP is estimated at 60 mmHg. Pulmonic Valve The pulmonary valve is normal in structure. There is no pulmonic valvular regurgitation. Great Vessels The aortic root is normal in size. IVC is dilated and collapses <50% with inspiration. Pericardium There is no pericardial effusion. <Conclusion> Left ventricular systolic function is mild to moderately decreased. LVEF 40-45%. Severe diastolic dysfunction Mild aortic valve sclerosis. No aortic regurgitation or stenosis Moderate mitral annular calcification. Moderate mitral regurgitation. Possible mild stenosis Mild tricuspid regurgitation. Pulmonary artery pressure estimated at 60 mmHg. There is no pericardial effusion. <ELECTRONICALLY SIGNED> By: Refugio Garrido MD, [facility] 12/24/17919 9 9 Refugio Garrido MD, FAC /INF
[~2017-12-19 09:50] MED LIST: ACETAMINOPHEN325 M1 PO; ADULT ASPIRIN81 MG PO; ALLOPURINOL 10100 M1 PO; BACTRIM 400-801 EACH PO; BACTROBAN CREAM30 G1 TOP; CLOPIDOGREL75 MG PO; FOSAMAX 70 MG T70 MG PO; HYDROCODONE-AP1 EAC6 PO; KEFLEX500 M1 PO; LANTUS100 UNIT/M SUBQ; LASIX 40 MG TAB40 M2 PO; LEVEMIR SUBQ; LISINOPRIL20 MG PO; LOPRESSOR100 M1 PO; LOVASTATIN 20 M20 MG PO; LYRICA 50 MG50 MG PO; MIRALAX17 GM PO; NORVASC5 MG PO; NOVOLOG100 UNIT/1 SUBQ
[2017-12-20 10:50] VITALS: BP 135/60
[2017-12-20 21:00] VITALS: BP 152/55
[2017-12-21 06:47] LABS: HEMATOCRIT 21.9 % (37.0-47.0); HEMOGLOBIN 7.1 gm/dL (12.0-15.0); MCH 27.9 pg (26.0-34.0); MCHC 32.6 g/dL (28.0-37.0); MCV 85.6 fL (80.0-100.0); RBC 2.55 mil/uL (4.20-5.00); RDW 17.8 % (10.5-14.5); WBC 11.8 thou/uL (4.0-11.0)
[2017-12-21 07:05] LABS: ALBUMIN 1.8 g/dL (3.4-5.0); CALCIUM 8.6 mg/dL (8.5-10.1); CREATININE 1.6 mg/dL (0.6-1.0); PHOSPHORUS 5.1 mg/dL (2.5-4.9)
[2017-12-21 09:00] VITALS: BP 120/54
[2017-12-21 20:19] VITALS: BP 118/52
[2017-12-22 05:49] LABS: % SATURATION 9 % (20-39); IRON 20 ug/dL (50-170); TIBC 220 ug/dL (250-450)
[2017-12-22 08:00] VITALS: BP 132/67
[2017-12-22 20:58] VITALS: BP 130/65
[2017-12-23 07:30] VITALS: BP 128/80
[2017-12-23 11:20] LABS: HEMATOCRIT 20.8 % (37.0-47.0); HEMOGLOBIN 6.8 gm/dL (12.0-15.0); MCH 28.2 pg (26.0-34.0); MCHC 32.8 g/dL (28.0-37.0); MCV 85.9 fL (80.0-100.0); RBC 2.42 mil/uL (4.20-5.00); RDW 18.2 % (10.5-14.5); WBC 11.2 thou/uL (4.0-11.0)
[2017-12-23 11:37] LABS: ALBUMIN 1.8 g/dL (3.4-5.0); CALCIUM 8.7 mg/dL (8.5-10.1); CREATININE 1.8 mg/dL (0.6-1.0); MAGNESIUM 2.5 mg/dL (1.8-2.4); POTASSIUM 5.5 mmol/L (3.5-5.1); TOTAL BILIRUBIN 0.2 mg/dL (<0.1-1.0); TOTAL PROTEIN 6.4 g/dL (6.4-8.2)
[2017-12-23 19:31] VITALS: BP 140/72
[2017-12-23 22:54] VITALS: BP 124/60; BP 130/62; BP 143/69
[2017-12-24 03:51] LABS: ALBUMIN 1.8 g/dL (3.4-5.0); CALCIUM 8.1 mg/dL (8.5-10.1); PHOSPHORUS 5.7 mg/dL (2.5-4.9); POTASSIUM 5.8 mmol/L (3.5-5.1)
[2017-12-24 04:34] LABS: HEMATOCRIT 23.7 % (37.0-47.0); HEMOGLOBIN 7.6 gm/dL (12.0-15.0)
[2017-12-24 07:50] VITALS: BP 120/90
[2017-12-24 19:13] VITALS: BP 150/90
[2017-12-25 04:54] LABS: HEMATOCRIT 24.2 % (37.0-47.0); MCH 28.5 pg (26.0-34.0); MCV 86.4 fL (80.0-100.0); PLATELET COUNT 522 thou/uL (150-400); RDW 17.8 % (10.5-14.5); WBC 12.3 thou/uL (4.0-11.0)
[2017-12-25 05:08] LABS: CALCIUM 7.9 mg/dL (8.5-10.1); CREATININE 1.8 mg/dL (0.6-1.0); MAGNESIUM 2.1 mg/dL (1.8-2.4); POTASSIUM 5.5 mmol/L (3.5-5.1)
[2017-12-25 07:30] VITALS: BP 137/82
[2017-12-25 07:38] LABS: ABSOLUTE NEUTROPHILS 10.3 thou/uL (1.4-8.2); ANISOCYTOSIS 1+; POLYCHROMASIA SLIGHT
[2017-12-25 19:17] VITALS: BP 153/76
[2017-12-26 05:28] LABS: EOSINOPHILS 1.6 % (0.0-3.0); HEMOGLOBIN 7.6 gm/dL (12.0-15.0); LYMPHOCYTES 9.5 % (24.0-44.0); MCH 27.6 pg (26.0-34.0); MCHC 31.5 g/dL (28.0-37.0); MCV 87.5 fL (80.0-100.0); MONOCYTES 7.3 % (1.0-8.0); PLATELET COUNT 488 thou/uL (150-400); POLYS 80.6 % (36.0-66.0); RBC 2.75 mil/uL (4.20-5.00); RDW 17.7 % (10.5-14.5); WBC 9.9 thou/uL (4.0-11.0)
[2017-12-26 05:57] LABS: ALBUMIN 1.8 g/dL (3.4-5.0); CALCIUM 8.1 mg/dL (8.5-10.1); CREATININE 1.6 mg/dL (0.6-1.0); POTASSIUM 5.2 mmol/L (3.5-5.1); TOTAL BILIRUBIN 0.3 mg/dL (<0.1-1.0); TOTAL PROTEIN 6.2 g/dL (6.4-8.2)
[2017-12-26 07:45] VITALS: BP 120/63
[2017-12-26 22:40] VITALS: BP 164/68
[2017-12-27 09:02] VITALS: BP 111/55
[2017-12-27 20:15] VITALS: BP 147/73
[2017-12-28 05:42] LABS: ABSOLUTE NEUTROPHILS 7.6 thou/uL (1.4-8.2); BASOPHILS 0.3 % (0.0-2.0); EOSINOPHILS 2.3 % (0.0-3.0); HEMATOCRIT 22.3 % (37.0-47.0); HEMOGLOBIN 7.2 gm/dL (12.0-15.0); LYMPHOCYTES 11.8 % (24.0-44.0); MCH 28.5 pg (26.0-34.0); MCHC 32.4 g/dL (28.0-37.0); MCV 88.1 fL (80.0-100.0); PLATELET COUNT 421 thou/uL (150-400); POLYS 78.6 % (36.0-66.0); RBC 2.53 mil/uL (4.20-5.00); RDW 18.6 % (10.5-14.5); WBC 9.7 thou/uL (4.0-11.0)
[2017-12-28 06:12] LABS: ALBUMIN 1.8 g/dL (3.4-5.0); CREATININE 1.5 mg/dL (0.6-1.0); PHOSPHORUS 5.1 mg/dL (2.5-4.9); POTASSIUM 5.3 mmol/L (3.5-5.1)
[2017-12-28 19:58] VITALS: BP 129/51
[2017-12-29 03:33] LABS: ALBUMIN 1.9 g/dL (3.4-5.0); CALCIUM 8.8 mg/dL (8.5-10.1); CREATININE 1.6 mg/dL (0.6-1.0); PHOSPHORUS 5.2 mg/dL (2.5-4.9); POTASSIUM 5.7 mmol/L (3.5-5.1)
[2017-12-29 08:41] VITALS: BP 129/42
[2017-12-29 19:35] VITALS: BP 142/63
[2017-12-30 03:11] LABS: ABSOLUTE NEUTROPHILS 7.3 thou/uL (1.4-8.2); BASOPHILS 1.4 % (0.0-2.0); EOSINOPHILS 2.3 % (0.0-3.0); HEMATOCRIT 23.1 % (37.0-47.0); HEMOGLOBIN 7.4 gm/dL (12.0-15.0); LYMPHOCYTES 10.7 % (24.0-44.0); MCH 28.4 pg (26.0-34.0); MCHC 32.1 g/dL (28.0-37.0); MCV 88.7 fL (80.0-100.0); MONOCYTES 7.7 % (1.0-8.0); PLATELET COUNT 354 thou/uL (150-400); POLYS 77.9 % (36.0-66.0); RDW 19.9 % (10.5-14.5); WBC 9.3 thou/uL (4.0-11.0)
[2017-12-30 03:19] LABS: ALBUMIN 1.9 g/dL (3.4-5.0); CALCIUM 8.7 mg/dL (8.5-10.1); CREATININE 1.5 mg/dL (0.6-1.0); PHOSPHORUS 5.7 mg/dL (2.5-4.9); POTASSIUM 5.5 mmol/L (3.5-5.1)
[2017-12-30 08:00] VITALS: BP 114/66
[2017-12-30 19:29] VITALS: BP 138/46
[2017-12-31 06:06] LABS: CREATININE 1.5 mg/dL (0.6-1.0); PHOSPHORUS 5.6 mg/dL (2.5-4.9); POTASSIUM 5.7 mmol/L (3.5-5.1)
[2017-12-31 08:15] VITALS: BP 138/72
[2017-12-31 19:31] VITALS: BP 155/77
[2018-01-01 08:00] VITALS: BP 127/51
[2018-01-01 19:12] VITALS: BP 132/74
[2018-01-02 04:16] LABS: ABSOLUTE NEUTROPHILS 7.2 thou/uL (1.4-8.2); BASOPHILS 0.9 % (0.0-2.0); EOSINOPHILS 2.7 % (0.0-3.0); HEMOGLOBIN 7.5 gm/dL (12.0-15.0); LYMPHOCYTES 7.4 % (24.0-44.0); MCH 29.3 pg (26.0-34.0); MCHC 32.3 g/dL (28.0-37.0); MCV 90.8 fL (80.0-100.0); MONOCYTES 7.3 % (1.0-8.0); PLATELET COUNT 250 thou/uL (150-400); POLYS 81.7 % (36.0-66.0); RBC 2.54 mil/uL (4.20-5.00); RDW 21.8 % (10.5-14.5); WBC 8.8 thou/uL (4.0-11.0)
[2018-01-02 04:17] LABS: CALCIUM 8.9 mg/dL (8.5-10.1); CREATININE 1.7 mg/dL (0.6-1.0); MAGNESIUM 2.3 mg/dL (1.8-2.4); PHOSPHORUS 5.5 mg/dL (2.5-4.9); POTASSIUM 5.9 mmol/L (3.5-5.1)
[2018-01-02 06:12] VITALS: BP 145/57
[2018-01-02 07:30] VITALS: BP 135/45
[2018-01-02 19:53] VITALS: BP 152/75
[2018-01-02 21:50] LABS: BE(vivo) 1.5 mmol/L (-2 to +3); HCO3 29.4 mmol/L (22.0-26.0); PCO2 64.8 mmHg (35.0-45.0); sO2 81.7 % (92.0-98.0)
[2018-01-02 21:51] LABS: PO2 52.7 mmHg (80.0-100.0); pH 7.275 (7.360-7.450)
== END 2018-01-03 00:53 | DRG 637 ==
PROVIDERS: Hospitalist; Internal Medicine; Internal Medicine Nephrology; Nurse Practitioner; Nurse Practitioner Family
PROC: 5A09357 Assistance with Respiratory Ventilation, Less than 24 Consecutive Hours, Continuous Positive Airway Pressure (ICD-10-PCS; principal; 2017-12-20)
PROC: 5A09357 Assistance with Respiratory Ventilation, Less than 24 Consecutive Hours, Continuous Positive Airway Pressure (ICD-10-PCS; 2017-12-25)
PROC: 5A09357 Assistance with Respiratory Ventilation, Less than 24 Consecutive Hours, Continuous Positive Airway Pressure (ICD-10-PCS; 2017-12-28)
PROC: 5A09357 Assistance with Respiratory Ventilation, Less than 24 Consecutive Hours, Continuous Positive Airway Pressure (ICD-10-PCS; 2017-12-29)
DX: E11.69 Type 2 diabetes mellitus with other specified complication (principal); E43 Unspecified severe protein-calorie malnutrition; J18.9 Pneumonia, unspecified organism; I50.33 Acute on chronic diastolic (congestive) heart failure; J96.21 Acute and chronic respiratory failure with hypoxia; J96.22 Acute and chronic respiratory failure with hypercapnia; M86.8X7 Other osteomyelitis, ankle and foot; L97.419 Non-pressure chronic ulcer of right heel and midfoot with unspecified severity; D62 Acute posthemorrhagic anemia; I13.0 Hypertensive heart and chronic kidney disease with heart failure and stage 1 through stage 4 chronic kidney disease, or unspecified chronic kidney disease; Z68.41 Body mass index [BMI] 40.0-44.9, adult; E87.1 Hypo-osmolality and hyponatremia; L03.115 Cellulitis of right lower limb; E11.51 Type 2 diabetes mellitus with diabetic peripheral angiopathy without gangrene; E11.22 Type 2 diabetes mellitus with diabetic chronic kidney disease; E11.621 Type 2 diabetes mellitus with foot ulcer; N18.9 Chronic kidney disease, unspecified; R53.81 Other malaise; I89.0 Lymphedema, not elsewhere classified; E78.5 Hyperlipidemia, unspecified; G47.33 Obstructive sleep apnea (adult) (pediatric); M81.0 Age-related osteoporosis without current pathological fracture; E11.42 Type 2 diabetes mellitus with diabetic polyneuropathy; E11.65 Type 2 diabetes mellitus with hyperglycemia; E87.5 Hyperkalemia; I95.9 Hypotension, unspecified; M19.90 Unspecified osteoarthritis, unspecified site; L89.892 Pressure ulcer of other site, stage 2; I25.10 Atherosclerotic heart disease of native coronary artery without angina pectoris; E53.8 Deficiency of other specified B group vitamins; E66.9 Obesity, unspecified; N17.9 Acute kidney failure, unspecified; E86.9 Volume depletion, unspecified; R33.9 Retention of urine, unspecified; E55.9 Vitamin D deficiency, unspecified; S80.01XA Contusion of right knee, initial encounter; X58.XXXA Exposure to other specified factors, initial encounter; Z89.511 Acquired absence of right leg below knee; Z95.820 Peripheral vascular angioplasty status with implants and grafts; Z88.8 Allergy status to other drugs, medicaments and biological substances; Z95.1 Presence of aortocoronary bypass graft; Z87.891 Personal history of nicotine dependence; Z79.899 Other long term (current) drug therapy; Z79.4 Long term (current) use of insulin; Z79.82 Long term (current) use of aspirin; Y93.89 Activity, other specified; Y92.89 Other specified places as the place of occurrence of the external cause; Y99.8 Other external cause status
CPT/HCPCS: 10112

== ENCOUNTER 2018-01-03 01:05 | Inpatient (IN) | payer OTHER ==
[~2018-01-03] VITALS: Ht 167.6 cm; Wt 116.2 kg
--- NOTE | ~2018-01-03 | 2DMMODE ---
[facility] [address] [employer] [facility] [place] [address] 2 D/M-MODE ECHOCARDIOGRAM Name: EDWAR MARCUS Room #: 207-P ADM IN M.R.#: [id number] Admission: 01/03/18 Attend Phys: Angel Mariscal MD Discharge: Date of : 52 Date of Service: 01/03/18 1358 Report #: [id number] THIS REPORT FOR: //name// APPROVED REPORT Study performed: 01/03/2018 13:07:59 EXAM: Limited 2D, Doppler, and color-flow Echocardiogram Patient Location: Bedside Room #: [facility] Status: routine BSA: 2.26 HR: 61 bpm BP: 137/48 mmHg Rhythm: NSR Other Information Study Quality: Fair Technically limited study due to morbid obesity and limited mobility.. Indications Abbreviated echo for possible PE signs. Hx: CAD. (Complete echo done 10 days ago) 2D Dimensions RVDd: 37.45 mm Tricuspid Valve TR Peak John.: 2.73 m/s RAP Estimate: 15.00 mmHg TR Peak Gr.: 29.74 mmHg Left Ventricle The left ventricle is normal size. Mild concentric left ventricular hypertrophy. Left ventricular systolic function is mildly decreased. LVEF is 45%. Right Ventricle The right ventricle is normal size. The right ventricular systolic function is normal. Atria The left atrium size is normal. The right atrium size is normal. Aortic Valve [facility] [address] [place] [address] 2 D/M-MODE ECHOCARDIOGRAM Name: EDWAR MARCUS Room #: 207-P ADM IN M.R.#: [id number] Admission: 01/03/18 Attend Phys: Angel Mariscal MD Discharge: Date of : 52 Date of Service: 01/03/18 1358 Report #: [id number] The Aortic valve is sclerotic. No aortic regurgitation is present. Mitral Valve Mitral valve leaflets are thickened. Moderate mitral annular calcification. Mild mitral regurgitation. Tricuspid Valve The tricuspid valve is normal in structure. Mild tricuspid regurgitation. Estimated PAP is 45mmHg. Great Vessels IVC is dilated and collapses <50% with inspiration. Pericardium There is no pericardial effusion. Left and right pleural effusions noted. <Conclusion> The left ventricle is normal size. Left ventricular systolic function is mildly decreased. LVEF is 45%. The right ventricle is normal size. The right ventricular systolic function is normal. The right atrium size is normal. The Aortic valve is sclerotic. No aortic regurgitation is present. Mitral valve leaflets are thickened. Moderate mitral annular calcification. Mild mitral regurgitation. The tricuspid valve is normal in structure. Mild tricuspid regurgitation. Estimated PAP is 45mmHg. There is no pericardial effusion. Left and right pleural effusions noted. <ELECTRONICALLY SIGNED> By: Luis Burnett MD 01/03/18 1358 1358 1358 Luis Burnett MD /INF
--- NOTE | ~2018-01-03 | HC ---
[facility] [place] [address] CONSULTATION Name: EDWAR MARCUS Room #: 207-P ADM IN M.R.#: [id number] Admission: 01/03/18 Attend Phys: Angel Mariscal MD Discharge: Date of : 52 Report #: [id number] THIS REPORT FOR: //name// CC: Angel Mariscal [facility] unknown DATE OF SERVICE: 01/07/2018 HISTORY OF PRESENT ILLNESS: This is a 67-year-old female patient for which the history is not very clear. I was called to see this patient as a stroke protocol. I talked to the nurses looking after this patient. I talked to the family. Initial history was that she was having some trouble with alteration of mental status yesterday and she was worse today. They also noticed she was having some myoclonic type jerking. REVIEW OF SYSTEMS: Pretty extensive. She has pretty significant respiratory problems. She is on multiple medications and that being readjusted by Dr. Jones. She is being followed by ID. She is being followed by Renal. She does have a decreased GFR at 38. A 14-point review of system is positive for multiple problems including that. PAST MEDICAL HISTORY: Positive for respiratory and GI problem. FAMILY HISTORY: Unremarkable. SOCIAL HISTORY: She has a family and I discussed it with them. PHYSICAL EXAMINATION: NEUROLOGIC: Indicates she is alert. She is responsive. She is partly oriented. Her speech is somewhat hesitant, but has been present for according to them about a week. Cranial nerve examination 2-12 was attempted, the best I can see to appear noncontributory. There is really no meningeal sign in this patient. VITAL SIGNS: Blood pressure is 93/69, respirations 17, pulse is 98. LABORATORY DATA: White count is 8.3, hemoglobin is only 7.1. GFR is 38. MEDICATIONS: Include pregabalin in this patient. IMPRESSION: This patient appeared to have a chronic problem rather than acute problem. This is going on for some time. She does have a pretty significant myoclonic jerking. I will discontinue pregabalin. We will get an MRI and EEG, but I do not believe it is an active stroke and even if it is, it is going on for several days. Nothing can be done about that. RECOMMENDATIONS: [address] [address] CONSULTATION Name: EDWAR MARCUS Room #: 207-P [facility] IN M.R.#: [id number] Admission: 01/03/18 Attend Phys: Angel Mariscal MD Discharge: Date of : 52 Report #: [id number] 1. MRI of the brain. 2. MRA of the head. 3. EEG. 4. Discontinue pregabalin. 5. We will see how readjusting her medication does. All of it was discussed with the family in detail. More than 50 minutes of time was spent taking care of this patient today and majority of that time was spent counseling the family and coordinating her care. By: Maty: 01/07/18 1419 20 Nick Uribe MD /benny
--- NOTE | ~2018-01-03 | HC ---
[facility] [place] [address] CONSULTATION Name: EDWAR MARCUS Room #: 207-P ADM IN M.R.#: [id number] Admission: 01/03/18 Attend Phys: Angel Mariscal MD Discharge: Date of : 52 Report #: [id number] THIS REPORT FOR: //name// CC: Angel Mariscal [facility] unknown DATE OF SERVICE: 01/05/2018 NEUROBEHAVIORAL STATUS EXAMINATION ATTENDING PHYSICIAN: Angel Mariscal M.D. TEST PREPARATION TUTOR: Paulo Pal, PhD CLINICAL PRESENTATION: The patient is a 67-year-old female, admitted to cardiac care from the rehabilitation unit for treatment of acute respiratory failure. She is status post right feiwi-mpm-wdeu amputation. The patient was on the rehabilitation unit to assist in recovery from the knee amputation when her condition deteriorated and she developed respiratory failure requiring more intensive acute management. Her admitting diagnoses to cardiac care is acute hypoxemic hypercapnic respiratory failure, general debility, nonhealing right foot ulcer with osteomyelitis, status post ehtza-jpy-wgnu amputation, hyperkalemia, postop blood loss, urinary retention, ARF, peripheral neuropathy, severe PVD and CAD with 3-vessel disease, diabetes mellitus, anemia, hypertension, chronic lymphedema, HLD and DJD along with obesity. A complete description of her medical condition, history and medications can be found in her medical record. Neuropsychological consultation was requested to provide assistance in the assessment of cognitive and emotional status and to provide recommendations and services. Prior to this most recent deterioration in her medical condition, she was living independently in a mobile home near her family. She had one child that was killed about 9 years ago from a car accident and was 10 years ago. One child and her sister live nearby. She has been on disability because of diabetes mellitus. She is a high school graduate. 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 There is no reported history of treatment for mood disorder or alcohol/drug abuse. TECHNIQUES UTILIZED: Clinical interview, review of medical records, staff consultation and behavioral observation, mini mental status exam 2 brief version and MMSE 2 standard version. EXAMINATION FINDINGS: The patient was alert and cooperative with the [facility] [address] [place] [address] CONSULTATION Name: EDWAR MARCUS Room #: 207-P [facility] IN M.R.#: [id number] Admission: 01/03/18 Attend Phys: Angel Mariscal MD Discharge: Date of : 52 Report #: [id number] assessment. She accurately described the reason for her transfer for acute medical intervention. Concern about her ability to recover from this medical event and survive. She does not report subjective depression. Tiredness and fatigue are described. Difficulty with short-term memory, word finding and naming were noted. Her appetite is reduced. However, she is morbidly obese. Her performance on the MMSE 2 brief version was extremely low with a raw score of 11/16. She was 3/3 for initial registration, 4/5 for orientation to time and 4/[address]. She was 0/3 for immediate recall of 3 items after a brief time delay and distraction. Performance on the MMSE 2 standard version was extremely low with a raw score of 21/30. There is a T score of 23, which is a percentile rank of less than 1. The patient is presenting with moderate to severe impairment in immediate recall, sustained concentration and attention and executive functioning. She is relying on assistance from her family to help manage her discharge needs along with current medical recommendations. In comparison to her previous neurobehavioral exam, she is showing a moderate decline. 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 Unspecified anxiety disorder. RECOMMENDATIONS: The patient will require 24-hour care and assistance in the management of medication, finances and nutrition. The anxiety that she has in regard to her survival will best be addressed through reassurance depending on her overall prognosis. Upon stabilization of her medical status a more thorough neuropsych assessment can clarify the severity of cognitive deficits and need for supportive services. Supportive counseling may also assist in her overall adjustment along with the use of relaxation techniques in management of anxiety. Thank you very much for allowing me to provide the consultation on this patient. <ELECTRONICALLY SIGNED> By: Paulo Pal, PhD 01/06/18 1341 1428 1652 Paulo Pal, PhD /nt
--- NOTE | ~2018-01-03 | HC ---
[facility] [place] [address] CONSULTATION Name: EDWAR MARCUS Room #: 207-P ADM IN M.R.#: [id number] Admission: 01/03/18 Attend Phys: Angel Mariscal MD Discharge: Date of : 52 Report #: [id number] THIS REPORT FOR: //name// CC: Angel MADERA unknown DATE OF SERVICE: 01/03/2018 WOUND CARE CONSULTATION PERSONAL PHYSICIAN: None on staff. CHIEF COMPLAINT: Right tchee-vbc-zinz amputation stump wound and coccygeal ulceration. HISTORY OF PRESENT ILLNESS: This is a 67-year-old white female with recent right xbmze-kob-hnix amputation secondary to osteomyelitis and was actually up in rehab after the surgery and doing fairly well until she had alteration in her mental status and was transferred acutely back to the acute cardiac floor. The patient is now being evaluated by Cardiology. We have been asked to continue to follow the patient for her wounds on her stump on the right lower BKA as well as her coccygeal region. The patient does complain of mild pain in the coccygeal region. The patient denies any pain in her BKA stump. The patient denies any other new ulcerations. PAST MEDICAL HISTORY: Significant for hypertension, hyperlipidemia, type 2 diabetes, coronary artery disease, peripheral arterial disease, osteomyelitis of her right lower extremity, now status post hsdrm-tkp-mync amputation on the right lower extremity, COPD. CURRENT MEDICATIONS: Multiple, I reviewed the patient's medication list. DRUG ALLERGIES: METFORMIN. SOCIAL HISTORY: The patient does not smoke or drink alcohol. FAMILY HISTORY: Not pertinent to current medical condition. REVIEW OF SYSTEMS: CONSTITUTIONAL: The patient denies fevers or chills. NEUROLOGIC: The patient complains of overall generalized weakness, but no isolated weakness in arms or legs. The patient denies headache. EYES: No complaints. ENT: No complaints. CARDIAC: The patient has chronic lower extremity edema, but no chest pain or palpitations at this time. [address] [address] CONSULTATION Name: EDWAR MARCUS Room #: 207-P [facility] IN ..#: [id number] Admission: 01/03/18 Attend Phys: Angel Mariscal MD Discharge: Date of : 52 Report #: [id number] RESPIRATORY: The patient has mild shortness of breath, but denies cough or wheezes. GASTROINTESTINAL: The patient denies nausea, vomiting or abdominal pain. GENITOURINARY: The patient denies urgency or frequency. MUSCULOSKELETAL: No complaints. SKIN: The patient has surgical wound on the right muzaq-ivp-xbyf amputation stump as well as a coccygeal decubitus ulcer. PHYSICAL EXAMINATION: VITAL SIGNS: Stable. The patient is afebrile. GENERAL: This is an alert and oriented x [address], but not time, chronically ill appearing white female who is in no obvious distress. HEENT: Normocephalic, atraumatic. Mucous membranes are dry. Pupils are round. Sclerae white. NECK: Supple, without masses. There is no obvious JVD. BACK: Nontender. LUNGS: Slightly diminished breath sounds heard throughout with occasional scattered wheeze. HEART: Regular. ABDOMEN: Obese, soft, nontender. Underneath the abdominal pannus, there is a fungal excoriation without signs of cellulitis. EXTREMITIES: Evaluation of the sacrococcygeal region reveals a stage 2 coccygeal ulcer, which is clean and granulating. Monica-ulcer itself is intact without signs of erythema or infection. There is no tunneling. There is minimal serous drainage noted without odor. Evaluation of the right lower extremity reveals the BKA stump site to be closed, dry and intact. There is minimal epidermolysis along the incisional line, but no signs of dehiscence. Left lower extremity reveals no open ulcerations. Left heel is intact. NEUROLOGIC: Cranial nerves 2-12 grossly intact. Motor and sensory grossly intact. LABORATORY DATA: White count 8.4, hemoglobin 7.1, BUN 104, creatinine 1.4. Hemoglobin A1c is 10.7. Albumin is 1.8. IMPRESSION: 1. Stage 2 sacrococcygeal decubitus ulcer present on admission. 2. Abdominal wall pannus fungal infection with excoriation. 3. Right xtxry-spb-yuuz amputation stump surgical wound, overall stable. 4. Diabetes mellitus. 5. Morbid obesity. 6. Protein-calorie malnutrition -- severe with albumin of 1.8. PLAN: At this time, we will use InterDry Ag to the abdominal wall pannus fungal excoriation, have this changed every 2-3 days. We will use Xeroform and ABD over the BKA stump site, change this daily. We used a stump internal combustion engine inspector for orthopedic recommendations. We will continue with morphine, Silvadene cream [address] [place] [address] CONSULTATION Name: EDWAR MARCUS Room #: 207-P [facility] IN M.R.#: [id number] Admission: 01/03/18 Attend Phys: Angel Mariscal MD Discharge: Date of : 52 Report #: [id number] mixed with barrier cream to the sacrococcygeal ulcer, place this 3 times daily. The patient will be placed on low air loss mattress and turned every 2 hours. Make sure we maximize the patient's oral protein supplementation for healing and glycemic control. We will attempt to utilize physical and occupational therapy for strengthening. We will continue all other current medications. We will continue to follow the patient. By: 0817 1726 Ross Samson MD /benny
--- NOTE | ~2018-01-03 | EEG ---
[facility] [place] [address] ELECTROENCEPHALOGRAM Name: EDWAR MARCUS Room #: 207-P ADM IN M.R.#: [id number] Admission: 01/03/18 Attend Phys: Angel Mariscal MD Discharge: Date of : 52 Report #: [id number] THIS REPORT FOR: //name// CC: Angel MADERA unknown DATE OF SERVICE: 01/07/2018 This patient is being evaluated for altered mental status. EEG was done to evaluate any etiology for that. Background activity in this patient's EEG is about 8 Hz and 30 microvolt. It is intermixed with theta range slowing on both sides. Photic stimulation was unremarkable. The patient went to sleep that is associated with bilaterally symmetrical sleep spindle and vertex sharp waves. Throughout the record, no active epileptiform activity was noticed. IMPRESSION: This is an abnormal EEG because it is disorganized and poorly formed. That typically occur with encephalopathy, but it is a nonspecific finding and can occur with dementia, effect of psychotropic medication, etc. Clinical correlation is recommended. By: 1552 1622 Nick Uribe MD /nt
[2018-01-03 03:40] VITALS: BP 146/73
[2018-01-03 04:44] LABS: ALBUMIN 2.1 g/dL (3.4-5.0); CALCIUM 9.1 mg/dL (8.5-10.1); CREATININE 1.5 mg/dL (0.6-1.0); PHOSPHORUS 5.3 mg/dL (2.5-4.9)
[2018-01-03 07:48] VITALS: BP 116/53
[2018-01-03 12:25] VITALS: BP 137/48
[2018-01-03 15:20] VITALS: BP 126/61
[2018-01-03 17:23] LABS: BE(vivo) 6.8 mmol/L (-2 to +3); HCO3 32.9 mmol/L (22.0-26.0); PCO2 57.5 mmHg (35.0-45.0); PO2 83.2 mmHg (80.0-100.0); pH 7.376 (7.360-7.450); sO2 95.7 % (92.0-98.0)
[2018-01-03 20:30] VITALS: BP 137/57
[2018-01-04 03:29] LABS: HEMATOCRIT 21.8 % (37.0-47.0); HEMOGLOBIN 7.1 gm/dL (12.0-15.0); MCH 29.1 pg (26.0-34.0); MCHC 32.4 g/dL (28.0-37.0); MCV 89.8 fL (80.0-100.0); RBC 2.43 mil/uL (4.20-5.00); RDW 21.5 % (10.5-14.5); WBC 8.4 thou/uL (4.0-11.0)
[2018-01-04 03:43] LABS: ALBUMIN 1.8 g/dL (3.4-5.0); CALCIUM 9.3 mg/dL (8.5-10.1); CREATININE 1.4 mg/dL (0.6-1.0); PHOSPHORUS 4.9 mg/dL (2.5-4.9); POTASSIUM 4.1 mmol/L (3.5-5.1)
[2018-01-04 04:45] VITALS: BP 152/57
[2018-01-04 07:11] LABS: BE(vivo) 6.6 mmol/L (-2 to +3); HCO3 32.3 mmol/L (22.0-26.0); PCO2 52.8 mmHg (35.0-45.0); PO2 71.5 mmHg (80.0-100.0); pH 7.404 (7.360-7.450); sO2 94.2 % (92.0-98.0)
[2018-01-04 07:54] VITALS: BP 135/56
[2018-01-04 11:57] VITALS: BP 143/86
[2018-01-04 16:11] VITALS: BP 125/64
[2018-01-04 20:45] VITALS: BP 140/49
[2018-01-05 04:07] LABS: ALBUMIN 1.9 g/dL (3.4-5.0); CALCIUM 9.1 mg/dL (8.5-10.1); CREATININE 1.4 mg/dL (0.6-1.0); PHOSPHORUS 4.4 mg/dL (2.5-4.9); POTASSIUM 3.8 mmol/L (3.5-5.1)
[2018-01-05 04:30] VITALS: BP 148/58
[2018-01-05 08:24] VITALS: BP 128/42
[2018-01-05 12:35] VITALS: BP 130/50
[2018-01-05 17:37] VITALS: BP 128/62
[2018-01-05 20:30] VITALS: BP 142/57
[2018-01-06 03:07] LABS: HEMATOCRIT 23.5 % (37.0-47.0); HEMOGLOBIN 7.5 gm/dL (12.0-15.0); MCHC 31.9 g/dL (28.0-37.0); MCV 90.9 fL (80.0-100.0); RBC 2.59 mil/uL (4.20-5.00); RDW 21.3 % (10.5-14.5); WBC 8.3 thou/uL (4.0-11.0)
[2018-01-06 03:27] LABS: ALBUMIN 1.9 g/dL (3.4-5.0); CREATININE 1.6 mg/dL (0.6-1.0); PHOSPHORUS 4.5 mg/dL (2.5-4.9); POTASSIUM 3.9 mmol/L (3.5-5.1)
[2018-01-06 04:10] VITALS: BP 137/62
[2018-01-06 07:27] VITALS: BP 134/45
[2018-01-06 11:51] VITALS: BP 140/52
[2018-01-06 15:51] VITALS: BP 119/56
[2018-01-06 20:01] VITALS: BP 125/50
[2018-01-07 02:57] LABS: ALBUMIN 1.9 g/dL (3.4-5.0); CALCIUM 8.7 mg/dL (8.5-10.1); CREATININE 1.4 mg/dL (0.6-1.0); PHOSPHORUS 4.3 mg/dL (2.5-4.9); POTASSIUM 4.1 mmol/L (3.5-5.1)
[2018-01-07 05:47] VITALS: BP 115/38
[2018-01-07 07:46] VITALS: BP 118/49
[2018-01-07 11:58] VITALS: BP 93/69
[2018-01-07 21:48] VITALS: BP 142/40
[2018-01-08 03:34] LABS: HEMATOCRIT 22.9 % (37.0-47.0); HEMOGLOBIN 7.4 gm/dL (12.0-15.0); MCH 29.5 pg (26.0-34.0); MCHC 32.4 g/dL (28.0-37.0); MCV 90.8 fL (80.0-100.0); RBC 2.53 mil/uL (4.20-5.00); RDW 20.4 % (10.5-14.5); WBC 6.8 thou/uL (4.0-11.0)
[2018-01-08 03:54] LABS: ALBUMIN 1.9 g/dL (3.4-5.0); CREATININE 1.6 mg/dL (0.6-1.0); PHOSPHORUS 4.1 mg/dL (2.5-4.9); POTASSIUM 4.1 mmol/L (3.5-5.1)
[2018-01-08 04:52] VITALS: BP 146/50
[2018-01-08 07:50] VITALS: BP 154/65
[2018-01-08 07:55] LABS: HCO3 38.3 mmol/L (22.0-26.0); PCO2 54.5 mmHg (35.0-45.0); PO2 99.4 mmHg (80.0-100.0); pH 7.465 (7.360-7.450); sO2 97.7 % (92.0-98.0)
[2018-01-08 11:42] VITALS: BP 148/47
[2018-01-08 15:38] VITALS: BP 137/39
[2018-01-08 19:38] VITALS: BP 128/52
[2018-01-09 04:10] LABS: ALBUMIN 2.1 g/dL (3.4-5.0); CALCIUM 9.2 mg/dL (8.5-10.1); CREATININE 1.4 mg/dL (0.6-1.0); PHOSPHORUS 3.8 mg/dL (2.5-4.9); POTASSIUM 3.6 mmol/L (3.5-5.1)
[2018-01-09 04:36] VITALS: BP 140/43
[2018-01-09 07:22] VITALS: BP 164/48
[2018-01-09] MEDS ORDERED: ERGOCALCIF50000 UNIT PO (09:38)
[2018-01-09] MEDS ORDERED: DUONEB 2.5-0.5 M3 ML INH (09:38)
[2018-01-09] MEDS ORDERED: PROCHLORPERAZINE5 M2 PO (09:38)
[2018-01-09] MEDS ORDERED: CEFDINIR300 MG PO (09:38)
[2018-01-09] MEDS ORDERED: LEVEMIR SUBQ (09:38)
[2018-01-09] MEDS ORDERED: LIPITOR 20 MG T20 M1 PO (09:38)
[2018-01-09] MEDS ORDERED: PROTONIX 20 MG20 MG PO (09:38)
[2018-01-09] MEDS ORDERED: TORSEMIDE20 MG PO (09:38)
[2018-01-09] MEDS ORDERED: LO-DOSE ASPIRIN81 M1 PO (09:38)
[2018-01-09] MEDS ORDERED: NORCO 10-325 T1 EACH PO (09:38)
[2018-01-09] MEDS ORDERED: LOPRESSOR25 PO (09:38)
[2018-01-09] MEDS ORDERED: COLACE100 MG PO (09:38)
[2018-01-09] MEDS ORDERED: CLOPIDOGREL75 MG PO (09:38)
[2018-01-09] MEDS ORDERED: FLOMAX0.4 MG PO (09:38)
[2018-01-09] MEDS ORDERED: VITAMIN B-12500 MCG PO (09:38)
[2018-01-09] MEDS ORDERED: NOVOLOG100 UNIT/1 SUBQ ×4 (09:38→10:38)
[2018-01-09] MEDS ORDERED: SPIRONOLACTONE25 M1 PO (09:38)
[2018-01-09] MEDS ORDERED: MUCINEX600 MG PO (09:38)
[2018-01-09] MEDS ORDERED: MIRALAX17 GM PO (09:38)
[2018-01-09] MEDS ORDERED: MELATONIN5 M1 PO (09:38)
[2018-01-09] MEDS ORDERED: IMDUR 30 MG TAB30 M1 PO (09:38)
[2018-01-09] MEDS ORDERED: PROBIOTIC1 EAC1 PO (10:38)
[2018-01-09] MEDS ORDERED: VITAMIN D2000 UNIT PO (10:38)
[2018-01-09 11:01] VITALS: BP 130/50
== END 2018-01-09 14:55 | DRG 291 ==
LOC: 2N 01:05
PROVIDERS: Hospitalist; Internal Medicine Nephrology; Internal Medicine Pulmonary Disease; Nurse Practitioner Family
PROC: 5A09357 Assistance with Respiratory Ventilation, Less than 24 Consecutive Hours, Continuous Positive Airway Pressure (ICD-10-PCS; principal; 2018-01-03)
PROC: 5A09357 Assistance with Respiratory Ventilation, Less than 24 Consecutive Hours, Continuous Positive Airway Pressure (ICD-10-PCS; 2018-01-04)
PROC: 5A09357 Assistance with Respiratory Ventilation, Less than 24 Consecutive Hours, Continuous Positive Airway Pressure (ICD-10-PCS; 2018-01-05)
PROC: 5A09357 Assistance with Respiratory Ventilation, Less than 24 Consecutive Hours, Continuous Positive Airway Pressure (ICD-10-PCS; 2018-01-07)
PROC: 5A09357 Assistance with Respiratory Ventilation, Less than 24 Consecutive Hours, Continuous Positive Airway Pressure (ICD-10-PCS; 2018-01-09)
DX: I13.0 Hypertensive heart and chronic kidney disease with heart failure and stage 1 through stage 4 chronic kidney disease, or unspecified chronic kidney disease (principal); J96.21 Acute and chronic respiratory failure with hypoxia; E43 Unspecified severe protein-calorie malnutrition; G93.40 Encephalopathy, unspecified; J96.22 Acute and chronic respiratory failure with hypercapnia; I50.30 Unspecified diastolic (congestive) heart failure; Z68.41 Body mass index [BMI] 40.0-44.9, adult; N17.9 Acute kidney failure, unspecified; M86.8X7 Other osteomyelitis, ankle and foot; E87.3 Alkalosis; D62 Acute posthemorrhagic anemia; E11.51 Type 2 diabetes mellitus with diabetic peripheral angiopathy without gangrene; E78.5 Hyperlipidemia, unspecified; I25.10 Atherosclerotic heart disease of native coronary artery without angina pectoris; L89.152 Pressure ulcer of sacral region, stage 2; J44.9 Chronic obstructive pulmonary disease, unspecified; E66.01 Morbid (severe) obesity due to excess calories; R41.9 Unspecified symptoms and signs involving cognitive functions and awareness; M19.90 Unspecified osteoarthritis, unspecified site; N18.9 Chronic kidney disease, unspecified; I27.20 Pulmonary hypertension, unspecified; E11.69 Type 2 diabetes mellitus with other specified complication; E87.5 Hyperkalemia; E11.42 Type 2 diabetes mellitus with diabetic polyneuropathy; R33.9 Retention of urine, unspecified; E53.8 Deficiency of other specified B group vitamins; I89.0 Lymphedema, not elsewhere classified; E55.9 Vitamin D deficiency, unspecified; L89.302 Pressure ulcer of unspecified buttock, stage 2; Z89.511 Acquired absence of right leg below knee; Z82.49 Family history of ischemic heart disease and other diseases of the circulatory system; Z83.3 Family history of diabetes mellitus; Z95.5 Presence of coronary angioplasty implant and graft; Z79.82 Long term (current) use of aspirin; Z79.899 Other long term (current) drug therapy
CPT/HCPCS: 10081

== ENCOUNTER 2019-03-12 11:06 | Inpatient (IN) | payer OTHER ==
[2019-03-12] VITALS (7 sets, daily range): BP systolic 98–127; BP diastolic 9–91
[~2019-03-12] VITALS: Ht 167.6 cm; Wt 109.2 kg
--- NOTE | ~2019-03-12 | HC ---
[facility] [place] [address] CONSULTATION Name: EDWAR MARCUS Room #: 349-I ADM IN M.R.#: [id number] Admission: 03/12/19 ������������������ Attend Phys: Angel Mariscal MD Discharge: ������������������ Date of : 52 Report #: [id number] THIS REPORT FOR: //name// CC: Angel Garcia DATE OF SERVICE: 03/12/2019 REASON FOR CONSULTATION: Hyperkalemia and acute kidney injury. HISTORY OF PRESENT ILLNESS: This is a 68-year-old female who for the [facility] She has been learning to use her prosthesis for her right ugbfj-xwp-xvwi amputation. She has been previously in this hospital in fact was in for nearly a month from November to end of December 2017. We have seen her in consultation at that time. She has some chronic kidney disease, baseline creatinine level, probably about 1.5 related to diabetic nephropathy. At that time, she came in and had a couple of contrast exposures. Creatinine level daniel acutely. She also had volume overload and some mild hyperkalemia. All of that was treated and she was more stable. Now, she shows up with a potassium level of 7.0. She has no EKG changes of hyperkalemia. She has not been on potassium supplementation that I can tell. She is on daily, furosemide. She is also on daily spironolactone, which might be contributing. She denies use of nonsteroidals. She denies use of high potassium foods. PAST MEDICAL HISTORY: Hypertension and type 2 diabetes mellitus, which are longstanding. She has coronary artery disease. 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 She has also had a previous hysterectomy, appendectomy, cholecystectomy. MEDICATIONS: On admission based upon the emergency room list includes DuoNeb inhaler, tamsulosin 0.4 mg daily, atorvastatin 20 mg daily, isosorbide mononitrate 30 mg daily, metoprolol 75 mg b.i.d., torsemide 40 mg daily, vitamin B12 500 mcg daily, ergocalciferol 50,000 units weekly, Plavix 75 mg daily, spironolactone 25 mg b.i.d., insulin in the form of NovoLog. Also, hydralazine 100 mg b.i.d., amlodipine 5 mg daily, allopurinol 300 mg daily. ALLERGIES: METFORMIN AND LYRICA. FAMILY HISTORY: Positive strongly for coronary artery disease and heart trouble. SOCIAL HISTORY: The patient is a . She lives in [place], [place]. She is retired. Again, she was up in town for [facility] getting her right prosthesis working well. REVIEW OF SYSTEMS: She says she has gotten dramatically more edematous over the [facility] [address] [place] [address] CONSULTATION Name: EDWAR MARCUS Room #: 349-I ADM IN M.R.#: [id number] Admission: 03/12/19 ������������������ Attend Phys: Angel Mariscal MD Discharge: ������������������ Date of : 52 Report #: [id number] past 4-5 days. With that, she has more dyspnea, she notes abdominal distention and fullness. She also has edema in her legs. She says she is short of breath. Denies cough. She has no fevers, chills or sweats. Denies nausea or vomiting. No chest pain or palpitations. PHYSICAL EXAMINATION: GENERAL: This is a profoundly edematous female who is awake and responsive, but does have mild dyspnea. VITAL SIGNS: Blood pressure 115/43, heart rate is 53, oxygen saturation 97% on supplemental oxygen, respiratory rate 20, temperature 97.7 degrees Fahrenheit. HEENT: Shows pupils are equal and reactive. Sclerae nonicteric. Oral mucosa is moist. NECK: Veins are not dramatically distended. CHEST: Shows decreased bilaterally in the bases. No dina rales or wheezes. HEART: Regular rate and rhythm. ABDOMEN: Shows active bowel sounds, is soft and nontender. She has extensive edema of her torso including her back, abdomen and flanks. EXTREMITIES: She has 2+ bilateral upper extremity edema. She has 2-3+ bilateral lower extremity edema including her thighs and also her left leg. I reviewed her chest x-ray, which showed evidence of fluid in the fissures and some Rose B lines. Also, some vascular redistribution. LABORATORY DATA: Sodium 133, potassium 7.0, chloride 101, bicarbonate 20, BUN 89, creatinine 2.6, glucose 164. Total protein 7.3, albumin 3.1, calcium 9.1, phosphorus 6.5, magnesium 2.3, AST 25, ALT 23. Troponin less than 0.06. White count 6.5, hemoglobin 8.7, hematocrit 26.6, platelets 228,000. Urinalysis, specific gravity 1.015, pH 5.5, trace protein. Blood gas pH 7.30, pCO2 of 37, pO2 of 82 on cannula at 4 liters per minute. ASSESSMENT: 1. Hyperkalemia. She is acutely elevated. She has been on spironolactone twice a day, which is contributing. It does not sound like she has been on supplemental potassium. Certainly, a renal ability to get rid of potassium is worse with a creatinine level up, that will be discussed below. She was treated in the emergency room. She has not yet dropped. She has gotten some Kayexalate, which will help on a longer term basis. I also want to be more aggressive on diuresis, which will help clear the potassium through the urine standpoint. 2. Heart failure, acute with massive volume overload. She needs very aggressive diuresis. I will put her on a furosemide drip and add oral metolazone, which worked very well with her year and a half ago. 3. Acute kidney injury on top of chronic kidney disease. Again, probably worse because of her heart being worse. She has had creatinine levels just high before. We will get her diuresed and see how her creatinine level does. I cannot find that she has received any nonsteroidals or any other agents, which [facility] [address] [place] [address] CONSULTATION Name: EDWAR MARCUS Room #: 349-I ADM IN M.R.#: [id number] Admission: 03/12/19 ������������������ Attend Phys: Angel Mariscal MD Discharge: ������������������ Date of : 52 Report #: [id number] her creatinine higher. 4. She has a past history of diabetic nephropathy as noted above. 5. Coronary artery disease. 6. One year post right ppweq-ytc-ngjx amputation. 7. Overall, she is very ill patient with a complicated medical picture. We will start with diuresis and go from there. PLAN: 1. Start a Lasix drip 10 mg per hour. 2. Metolazone 5 mg tonight and then daily starting in the morning. 3. Closely monitor intake and output. 4. Repeat labs in the morning to make sure potassium level is coming down. 5. Sodium restricted diet. 6. Further plans once we see how she responds to this initial therapy. ��������������������������������������������� ���������������������������������������� By: ��������������������������������������������� 1721 0007 Jacob Martinez MD /nt
[~2019-03-12 11:06] MED LIST changes: +CEFDINIR300 MG PO; +COLACE100 MG PO; +DUONEB 2.5-0.5 M3 ML INH; +ERGOCALCIF50000 UNIT PO; +FLOMAX0.4 MG PO; +IMDUR 30 MG TAB30 M1 PO; +LIPITOR 20 MG T20 M1 PO; +LO-DOSE ASPIRIN81 M1 PO; +LOPRESSOR25 PO; +MELATONIN5 M1 PO; +MUCINEX600 MG PO; +NORCO 10-325 T1 EACH PO; +PAIN & FEVER325 MG PO; +PROBIOTIC1 EAC1 PO; +PROCHLORPERAZINE5 M2 PO; +PROTONIX 20 MG20 MG PO; +SPIRONOLACTONE25 M1 PO; +TORSEMIDE20 MG PO; +VITAMIN B-12500 MCG PO; +VITAMIN D2000 UNIT PO
[2019-03-12 12:07] LABS: ABSOLUTE NEUTROPHILS 5.2 thou/uL (1.4-8.2); BASOPHILS 1.2 % (0.0-2.0); EOSINOPHILS 1.4 % (0.0-3.0); HEMATOCRIT 26.6 % (37.0-47.0); HEMOGLOBIN 8.7 gm/dL (12.0-15.0); LYMPHOCYTES 10.8 % (24.0-44.0); MCH 29.4 pg (26.0-34.0); MCHC 32.6 g/dL (28.0-37.0); MONOCYTES 7.2 % (1.0-8.0); PLATELET COUNT 228 thou/uL (150-400); POLYS 79.4 % (36.0-66.0); RBC 2.95 mil/uL (4.20-5.00); RDW 19.4 % (10.5-14.5); WBC 6.5 thou/uL (4.0-11.0)
[2019-03-12 12:28] LABS: URINE BILIRUBIN NEGATIVE (Negative); URINE BLOOD NEGATIVE (Negative); URINE CLARITY CLEAR; URINE COLOR YELLOW; URINE GLUCOSE-RANDOM* NEGATIVE (Negative); URINE KETONES NEGATIVE (Negative); URINE LEUKOCYTES-REFLEX NEGATIVE (Negative); URINE NITRITE-REFLEX NEGATIVE (Negative); URINE PROTEIN (DIPSTICK) TRACE (Negative); URINE SPECIFIC GRAVITY 1.015 (1.005-1.035); URINE UROBILINOGEN 0.2 E.U./dl (0.2-1.0)
[2019-03-12 12:28] LABS: ANION GAP 9 mmol/L (7-16); BUN 89 mg/dL (7-18); CALCIUM 9.3 mg/dL (8.5-10.1); CHLORIDE 102 mmol/L (98-107); CO2 22 mmol/L (21-32); CREATININE 2.6 mg/dL (0.6-1.0); GLUCOSE 166 mg/dL (74-106); SGOT 25 U/L (15-37); SGPT 23 U/L (30-65); SODIUM 133 mmol/L (136-145); TOTAL BILIRUBIN 0.5 mg/dL (<0.1-1.0); TOTAL PROTEIN 7.3 g/dL (6.4-8.2); TROPONIN-I <0.06 ng/mL (<0.06)
[2019-03-12 12:41] LABS: ANISOCYTOSIS 2+; PLATELET ESTIMATE NORMAL
[2019-03-12] MEDS ORDERED: MELATONIN3 MG PO (12:55)
[2019-03-12] MEDS ORDERED: LOPERAMIDE 2 MG2 M1 PO (12:56)
[2019-03-12] MEDS ORDERED: NOVOLIN N100 UNIT/1 SUBQ (12:57)
[2019-03-12] MEDS ORDERED: HYDRALAZINE 2525 MG PO (13:01)
[2019-03-12] MEDS ORDERED: VOLTAREN GEL 1100 G2 TOP (13:02)
[2019-03-12] MEDS ORDERED: SANTYL OINTMENT30 G1 TOP (13:03)
[2019-03-12] MEDS ORDERED: AZITHROMYCIN 2250 MG PO (13:04)
[2019-03-12] MEDS ORDERED: ZYLOPRIM300 MG PO (13:05)
[2019-03-12] MEDS ORDERED: NORVASC5 MG PO (13:05)
[2019-03-12 13:10] LABS: MAGNESIUM 2.3 mg/dL (1.8-2.4); PHOSPHORUS 6.7 mg/dL (2.5-4.9)
[2019-03-12 13:15] LABS: BE(vivo) -7.7 mmol/L (-2 to +3); PCO2 37.1 mmHg (35.0-45.0); PO2 82.1 mmHg (80.0-100.0); pH 7.304 (7.360-7.450); sO2 95.2 % (92.0-98.0)
[2019-03-12 15:01] LABS: ALBUMIN 3.1 g/dL (3.4-5.0); CALCIUM 9.1 mg/dL (8.5-10.1); CREATININE 2.6 mg/dL (0.6-1.0); PHOSPHORUS 6.5 mg/dL (2.5-4.9)
--- NOTE | 2019-03-12 18:13 | NUR ---
ASSUMED CARE OF PT AT 1640 THIS SHIFT. PT HAS BEEN COOPERATIVE, HAS DENIED PAIN BUT HAS ADMITTED TO DIFFICULTY BREATHING. PT HAS BEEN IN REHAB LAST TWO WEEKS, HAS BEEN FEELING WEAKNESS IN THE LAST DAY OR TWO. PT IS CURRENTLY RESTING COMFORTABLY IN ROOM, ASSESSMENTS ARE DOCUMENTED. PT HAS NOT HAD VISITORS THIS SHIFT, EDUCATION WAS PROVIDED. PLAN OF CARE IS TO CONTINUE TO MONITOR PT CLOSELY AT THIS TIME.
[2019-03-13 03:11] VITALS: BP 115/40
[2019-03-13 05:35] LABS: ABSOLUTE NEUTROPHILS 5.6 thou/uL (1.4-8.2); BASOPHILS 0.1 % (0.0-2.0); HEMATOCRIT 26.9 % (37.0-47.0); HEMOGLOBIN 8.6 gm/dL (12.0-15.0); LYMPHOCYTES 5.4 % (24.0-44.0); MCH 29.3 pg (26.0-34.0); MCHC 32.1 g/dL (28.0-37.0); MCV 91.3 fL (80.0-100.0); MONOCYTES 0.8 % (1.0-8.0); PLATELET COUNT 240 thou/uL (150-400); POLYS 93.7 % (36.0-66.0); RBC 2.94 mil/uL (4.20-5.00); RDW 20.4 % (10.5-14.5); WBC 5.9 thou/uL (4.0-11.0)
--- NOTE | 2019-03-13 05:46 | NUR ---
ASSUMED CARE OF PT AT 1900HRS. PT IS AOX4 AND CALLS FOR HELP NEEDED. BUSH PLACED PER ORDER FOR STRICT I&O. PT COMPLAINED OF PAIN AND FREQUENT BM AND WAS TREATED WITH PRN MEDICATION. LASIX DRIP STARTED. ABX TREATMENT CONTINUED. PT WAS TURNED Q2-3 HOURS. NO OTHER S/S OF ACUTE DISTRESS. WILL CONTINUE TO MONITOR.
[2019-03-13 05:48] LABS: CALCIUM 8.9 mg/dL (8.5-10.1); CREATININE 2.7 mg/dL (0.6-1.0); MAGNESIUM 2.3 mg/dL (1.8-2.4)
[2019-03-13 06:05] LABS: POTASSIUM 6.9 mmol/L (3.5-5.1)
[2019-03-13 07:29] VITALS: BP 128/42
--- NOTE | 2019-03-13 08:33 | EKG ---
[place] [address] [facility] [place] [address] ELECTROCARDIOGRAM REPORT Name: AMRITEDWAR Room #: 349-I ADM IN M.R.#: [id number] ������������������ Admission: 03/12/19 ������������������ Attend Phys: Angel Mariscal MD Discharge: ������������������ Date of : 52 Report #: [id number] ����������������������������������������������������������������� [id number] THIS REPORT FOR: //name// [facility] ED Test Date: 2019-03-12 Test Time: 11:19:46 Pat Name: EDWAR MARCUS Department: Room: [facility] Gender: F Analytics Developer: almita : 1950 Requested By: Lizzy Chu Order Number: [id number] MD: Reufgio Garrido Measurements Intervals [place] Rate: 52 P: ND: QRS: -63 QRSD: 136 T: 64 QT: 500 QTc: 465 Interpretive Statements Atrial fibrillation Nonspecific IVCD with LAD Probable anteroseptal infarct, old No previous ECG available for comparison Electronically Signed On 03-13-2019 8:33:26 CDT by Refugio Garrido [email or web address] ��������������������������������������������� <ELECTRONICALLY SIGNED> ���������������������������������������� By: Refugio Garrido MD, [facility] ��������������������������������������������� 03/13/19 0833 D: 08/1118 111 Refugio Garrido MD, FACC /EPI
--- NOTE | 2019-03-13 09:59 | NUR ---
WOUND CONSULT; IDENTIFIED A LEFT LAT FOOT WOUND, LIKELY TENDON EXPOSED, WHITE AND VIABLE AT THIS MOMENT. NO S/S OF INFECTION. PATIENT HAS HX OF WOUNDS, RIGHT LAT LE AMPUTATED. THE STUMP IS PINK, WARM AND BLANCHABLE. RECOMMENDATION; DR YOANNA ANDERSON TO SEE. FOR NOW XEROFORM COVERED WITH A BOARDERED FOAM. DISCUSSED WITH ALANIS
[2019-03-13 11:06] VITALS: BP 121/46
--- NOTE | 2019-03-13 13:26 | NUR ---
INITIAL ASSESSMENT: Received high risk nursing referral, as pt was admitted from [facility] due to hypoxia. Pt with hx of right BKA. Pt is currently on a lasix gtt. JOSH met with pt at bedside. Introduced role of JOSH. Pt is alert/orientated x 4. Pt reports that she was scheduled to discharge from [facility] on Sunday, 03/15, to go back home with [facility]. Pt lives at home alone in a mobile home, with a ramp, in [place], [place]. Pt's dtr lives across the street. Pt has a w/c, slide boards and DME in the home. Pt has used [facility] in the past. Pt has been to [facility] in the past. Pt states her goal is to return home with HH. Pt voiced concern about her belongings at [facility]. JOSH contacted [facility] liaison, who will have pt's belongings brought to [facility]. Pt's family will take belongings home. JOSH is following to assist a needed with discharge planning.
[2019-03-13 16:18] VITALS: BP 141/39
--- NOTE | 2019-03-13 16:19 | NUR ---
IV TEAM STARTED NEW IV THIS EVENING.
[2019-03-13 19:10] VITALS: BP 130/42
[2019-03-14 03:48] VITALS: BP 125/37
--- NOTE | 2019-03-14 04:47 | NUR ---
progress pt a/o x3 to 4 a little forgetful of time. not oob this shift had a r bka in 2018. cellulitis of both lower extremeties concern for osteomyelitis. getting vancomycin and zosyn. lung coarse and diminished in all howell, has a occasional productive cough. iv antibiotics continue
[2019-03-14 05:18] LABS: CALCIUM 8.2 mg/dL (8.5-10.1); CREATININE 2.9 mg/dL (0.6-1.0); PHOSPHORUS 6.5 mg/dL (2.5-4.9)
[2019-03-14 05:58] LABS: POTASSIUM 6.3 mmol/L (3.5-5.1)
--- NOTE | 2019-03-14 06:03 | NUR ---
progress pt potassium level high at 21 orders obtained to check accuchscks q1hr, ssi administered. continue to watch potassium level, call to with lab results awaiting for return call to report. Ilsa gandhi notified requested I notify pharmacy they will adjust follow doses continue poc. [id number]
[2019-03-14 07:34] VITALS: BP 106/42
--- NOTE | 2019-03-14 08:20 | NUR ---
ASSESS PT WITH DR. DUMONT THIS AM. INSTRUCTED TO DC ONETIME INSULIN AND D50 ORDER, PLACE PT ON FLUID 1500ML FLUID RESTRICTION. WILL CONTINUE TO ASSESS.
--- NOTE | 2019-03-14 09:32 | NUR ---
pt off unit to margaret aldana.
--- NOTE | 2019-03-14 10:44 | NUR ---
DISCHARGE PLANNING. ANTICIPATED WEEKEND DISCHARGE. PATIENT WAS ADMITTED FROM [facility], PLANNED DISCHARGE FROM [facility] WAS TO HOME WITH [facility]. PLANNED DISCHARGE FROM IS TO HOME WITH HOME HEALTH SERVICES. CALL PLACED TO [facility] [place] [facility]. SPOKE WITH [facility], PATIENT IS KNOWN TO [facility]. PATIENT REFERRAL FAXED TO LAN FOR PATIENTS HOME HEALTH NEEDS. LAN TO FACILITATE ONCE PATIENTS DISCHARGE/HOME HEALTH ORDERS ARE COMPLETED AND FAXED TO [facility]. [facility] CONTACT NUMBER IS [phone] PLEASE FAX DISCHARGE ORDERS/HH TO [facility] ONCE AVAILABLE [phone]. FOLLOWING TO ASSIST WITH DISCHARGE NEEDS. UNIT SW AWARE.
[2019-03-14 10:50] VITALS: BP 106/42
[2019-03-14 11:46] VITALS: BP 117/42
[2019-03-14 15:00] VITALS: BP 116/49
--- NOTE | 2019-03-14 15:22 | NUR ---
JOSH reviewed chart and spoke with nursing and attending physician. PT is progressing towards goals for discharge. Pt may be ready for discharge home over the holiday weekend. planner chief sent info to [facility], who will be able to provide care to pt when discharged. JOSH met with pt at bedside to provide update and discuss discharge plan. Pt states she is unsure if she will have transportation home. W/c is in pt's room. JANETH brought her belongings yesterday. JOSH discussed with Director of Case Mgmt, who approved to arrange w/c van transportation home with [employer]. Contact info for [facility] placed in pt's discharge summary. Final discharge orders/summary will need to be faxed when available. JOSH is following to assist as needed with discharge planning. [employer]-- [facility] CONTACT NUMBER IS [phone] PLEASE FAX DISCHARGE ORDERS/HH TO [facility] ONCE AVAILABLE [phone].
--- NOTE | 2019-03-14 18:53 | NUR ---
PT REMAINED ON LASIX GTT HOWEVER ONLY 450ML U.O. VIA BUSH. RENAL IS AWARE OF LOW URINE OUTPUT. PT TO HAVE LEFT LEG ARTERIOGRAM SOON. WILL ALLOW IR TO CONSENT PATIENT FOR THIS PROCEDURE.
[2019-03-14 19:26] VITALS: BP 95/43
[2019-03-15] MEDS ORDERED: NORCO 10-325 T1 EACH PO (01:20)
[2019-03-15 03:34] VITALS: BP 119/40
--- NOTE | 2019-03-15 03:53 | NUR ---
Patient making slow progress towards outcome goals. Vital signs and rhytm stable. High fall risk, fall precautions in place, Lasix drip infusing. Left foot dressing intact. Good pin control with Hydrocodone.
[2019-03-15 05:46] LABS: ALBUMIN 2.8 g/dL (3.4-5.0); CALCIUM 8.3 mg/dL (8.5-10.1); CREATININE 2.9 mg/dL (0.6-1.0); PHOSPHORUS 6.3 mg/dL (2.5-4.9)
[2019-03-15 05:50] LABS: POTASSIUM 6.1 mmol/L (3.5-5.1)
--- NOTE | 2019-03-15 06:04 | NUR ---
Critical lab reported to Kathryn Vasquez NP. No new orders.
[2019-03-15 07:22] VITALS: BP 97/39
[2019-03-15 11:16] VITALS: BP 90/37
[2019-03-15 15:06] VITALS: BP 114/33
[2019-03-15 18:57] VITALS: BP 123/37
--- NOTE | 2019-03-15 19:35 | NUR ---
PATIENT ALERT AND ORIENTED X4, PAIN CONTROLLED WITH MEDICATION. SINUS RHYTHM ON DRYING CAN WORKER. ON 4L NASAL CANNULA. TOLERATING DIET. BUSH PATENT AND DRAINING. LASIX DRIP FOR EDEMA. LEFT FOOD DRESSING IN PLACE. BLOOD SUGAR MONITORED. NO SIGNS OF ACUTE DISTRESS NOTED AT THIS TIME. WILL CONTINUE TO MONITOR.
--- NOTE | 2019-03-16 03:11 | NUR ---
Pt. slept well during the night. Repositioned for comfort. O2 at 4L/NC . Cont. on lasix gtt. Dressing intact on left foot.Will continue to monitor.
[2019-03-16 03:19] VITALS: BP 110/43
[2019-03-16 05:27] LABS: ALBUMIN 2.9 g/dL (3.4-5.0); CALCIUM 8.3 mg/dL (8.5-10.1); CREATININE 3.1 mg/dL (0.6-1.0)
[2019-03-16 05:35] LABS: POTASSIUM 6.4 mmol/L (3.5-5.1)
[2019-03-16 08:00] VITALS: BP 100/30
[2019-03-16 11:48] VITALS: BP 104/32
[2019-03-16 15:10] VITALS: BP 104/37
[2019-03-16 19:10] VITALS: BP 97/38
[2019-03-16 19:20] VITALS: BP 126/34
--- NOTE | 2019-03-17 03:20 | NUR ---
PATIENT IS PROGRESSING SLOWLY IN HER CARE PLAN. VITAL SIGNS MOSTLY STABLE WITH PATIENT SHOWING DIASTOLIC HYPOTENSION WHICH IS AN EXPECTED FINDING CURRENTLY. ALERT AND FULLY ORIENTED, PATIENT IS ABLE TO PARTICIPATE IN CARE AND CALL APPROPRIATELY FOR NEEDS. BREATHING STABLE EVIDENCED BY ASSESSMENTS AND SPOT OXYGENATION CHECKS. PATIENT DID COMPLAIN OF PAIN IN "TAILBONE" WHICH WAS TREATED WITH MEDICATIONS AND REPOSITIONING. SWALLOW PRECAUTIONS FOLLOWED WITH NO EVIDENCE OF ASPIRATION. PATIENT ADHERED TO FLUID RESTRICTION. LASIX GTT REMAINS AT ORDERED RATE. WOUND CARE PER ORDER WITH NURSE IDENTIFYING SKIN OPENING TO BUTTOCK. PICTURE TAKEN WITH WOUND CARE NURSE CONSULTED. PATIENT WAS TURNED FREQUENTLY WITH BARRIER CREAM APPLIED. CONTINUE PLAN OF CARE.
[2019-03-17 04:07] VITALS: BP 97/36
[2019-03-17 05:50] LABS: ALBUMIN 2.7 g/dL (3.4-5.0); CALCIUM 8.5 mg/dL (8.5-10.1); CREATININE 3.3 mg/dL (0.6-1.0); PHOSPHORUS 7.1 mg/dL (2.5-4.9); POTASSIUM 5.8 mmol/L (3.5-5.1)
[2019-03-17 08:00] VITALS: BP 99/33
[2019-03-17 11:09] VITALS: BP 105/40
--- NOTE | 2019-03-17 14:09 | NUR ---
care of pt assumed this am @~0700. pt aox4. maex4, w/ rt bka. drsg c/d/i to lt foot. pt deneis soa and n/v/d today. pt co lt posterior shoulder discomfort 11/22, medication cream w/ relief 08/25. pt w/ good appetite for breakfast and poor appetite for lunch. pt aware of fluid restriction of 1500cc/24hrs. pt on a lasix gtt w/ no concerns at this time. pt w/ salgado, draining w/o concerns at this time. pt noted to have poor gi control, found to be incontinent of stool this am. pt visiting w/ friends over lunch, pt came to visit and work w/ patient at 1330, but pt stated she was still eating lunch and request she come back later.
[2019-03-17 19:26] VITALS: BP 127/40
[2019-03-18 03:52] VITALS: BP 98/42
--- NOTE | 2019-03-18 04:46 | NUR ---
PATIENT IS PROGRESSING SLOWLY IN HER CARE PLAN. VITAL SIGNS STABLE WITH PATIENT HAVING NO COMPLAINTS OF NAUSEA. PATIENT DID COMPLAIN OF VERY MILD "DISCOMFORT" TO LEFT SHOULDER WHICH WAS TREATED WITH MEDICATION AND NON PHARMACOLOGICAL INTERVENTION. FULLY ORIENTED, PATIENT IS ABLE TO PARTICIPATE IN CARE AND CALL APPROPRIATELY FOR NEEDS. BREATHING STABLE ON HOME DOSAGE OF OXYGEN EVIDENCED BY ASSESSMENTS AND SPOT OXYGENATION CHECKS. LASIX DRIP PER ORDER WITH PATIENT HAVING INCREASED URINARY OUTPUT. WOUND CARE PER ORDER WITH PATIENT TURNED AND BARRIER CREAM APPLIED FREQUENTLY. PATIENT HAS BEEN KEPT NPO FROM 0400 ON IN ANTICIPATION OF POSSIBLE PROCEDURE TODAY. SHE IS ANXIOUS FOR DISCHARGE. CONTINUE PLAN OF CARE.
[2019-03-18 05:23] LABS: HEMATOCRIT 23.9 % (37.0-47.0); HEMOGLOBIN 7.6 gm/dL (12.0-15.0); MCH 29.7 pg (26.0-34.0); MCHC 31.9 g/dL (28.0-37.0); MCV 93.1 fL (80.0-100.0); RBC 2.57 mil/uL (4.20-5.00); RDW 20.8 % (10.5-14.5); WBC 6.7 thou/uL (4.0-11.0)
[2019-03-18 05:34] LABS: ALBUMIN 2.6 g/dL (3.4-5.0); CALCIUM 8.5 mg/dL (8.5-10.1); CREATININE 3.2 mg/dL (0.6-1.0); PHOSPHORUS 7.1 mg/dL (2.5-4.9); POTASSIUM 5.6 mmol/L (3.5-5.1)
[2019-03-18 07:22] VITALS: BP 110/31
[2019-03-18 11:29] VITALS: BP 109/59
[2019-03-18 15:09] VITALS: BP 119/34
--- NOTE | 2019-03-18 15:33 | NUR ---
SW reviewed chart and spoke with nursing and attending physician. Pt remains on lasix gtt. Pt's angiogram was cancelled for today. 5N is following for possible admission to inpt acute rehab. SW is following to assist as needed with discharge planning.
--- NOTE | 2019-03-18 17:49 | NUR ---
FALL PREC IN PLACE...HEAVY ASSIST TO TURN...BEDREST...RT BKA--STUMP TOO SWOLLEN FOR PROSTHESIS...
[2019-03-18 19:30] VITALS: BP 134/43
--- NOTE | 2019-03-19 03:37 | NUR ---
PATIENT IS ALERT AND ORIENTED. PATIENT IS Q2TURN. PATIENTS LBM WAS THE 4TH. PATIENT HAS A BUSH FOR I&OS. PATIENT IS ON 3LNC 2L BASELINE PATIENT REFUSED CPAP. PATIENT IS 1500ML FLUID RESTRICTION. PATIENT IS 1 AVB WITH BBB. PATIENT IS NOT TO USE STRAWS PER SWALLOW PRECAUIONS. PATIENT IS ON LASIX DRIP. PATIENTS PAIN IS TREATED WITH PAIN MEDICATION. PATIENT IS RESTING COMFORTABLY IN BED. WCM. PATIENT PENDING ANGIOGRAM ONCE KIDNEY FUNCTION IMPROVES.
[2019-03-19 04:06] VITALS: BP 94/37
[2019-03-19 05:39] LABS: ALBUMIN 2.7 g/dL (3.4-5.0); CALCIUM 8.6 mg/dL (8.5-10.1); CREATININE 3.2 mg/dL (0.6-1.0); PHOSPHORUS 7.5 mg/dL (2.5-4.9); POTASSIUM 5.4 mmol/L (3.5-5.1)
[2019-03-19 07:48] VITALS: BP 92/36
[2019-03-19 11:30] VITALS: BP 92/72
[2019-03-19 15:47] VITALS: BP 122/44
--- NOTE | 2019-03-19 16:09 | NUR ---
JOSH reviewed chart and spoke with nursing and attending physician. EllynN evaluated pt and pt is not a candidate for 5N. JOSH met with pt at bedside to provide update and discuss discharge planning. Pt is hoping to return directly home from the hospital with services. Per pt, every time she goes to a facility, she ends up in the hospital. JOSH asked [facility] to check pt's Medicare acute and SNF days. Pt has been to [facility] in the past. JOSH is following to assist as needed with discharge planning.
--- NOTE | 2019-03-19 16:51 | NUR ---
PATIENT WAS SEEN BY CASEY KRAFT NP WITH DR. GILL. PATIENT DOES NOT QUALIFY FOR ACUTE REHAB ADMISSSION AND IS NOT A CANDIDATE FOR [address] [place] [address]. WATERPROOF BAG CUTTING MACHINE OPERATOR INFORMED. THANK YOU FOR THIS REFERRRAL.
[2019-03-19 20:04] VITALS: BP 105/37
[2019-03-20 03:55] VITALS: BP 123/37
[2019-03-20 06:10] LABS: ALBUMIN 2.7 g/dL (3.4-5.0); CALCIUM 8.5 mg/dL (8.5-10.1); CREATININE 3.4 mg/dL (0.6-1.0); PHOSPHORUS 7.8 mg/dL (2.5-4.9)
[2019-03-20 06:16] LABS: POTASSIUM 5.6 mmol/L (3.5-5.1)
[2019-03-20 07:55] VITALS: BP 113/34
[2019-03-20 11:20] VITALS: BP 118/44
--- NOTE | 2019-03-20 11:29 | NUR ---
Dawit received a message from Juanita at [facility] in [facility] requesting information regarding patient's dc timeframe. DAWIT called [facility] [phone] and spoke with Yoel, dawit told Monica that patient is still at hospital and dc anticipated date is unknown at this time, dawit sent some updates. Monica will relay message to Juanita, fax [phone]. Case management will follow up.
--- NOTE | 2019-03-20 12:49 | NUR ---
SW reviewed chart and spoke with nursing and attending physician. Engineering Writer discussed need for possible dialysis with pt earlier today. Pt to consider initiating dialysis. SW is following to assist as needed with discharge planning.
--- NOTE | 2019-03-20 13:09 | 2DMMODE ---
[facility] [address] [place] [address] 2 D/M-MODE ECHOCARDIOGRAM Name: EDWAR MARCUS Room #: 353-P ADM IN M.R.#: [id number] ������������� Admission: 03/12/19 ������������� Attend Phys: Angel Mariscal MD Discharge: ��� ������������� ��� Date of : 52 Date of Service: 03/20/19 1308 �� Report #: [id number] �������� ��������������������������������������������[id number] THIS REPORT FOR: //name// APPROVED REPORT Study performed: 03/20/2019 10:09:23 EXAM: Comprehensive 2D, Doppler, and color-flow Echocardiogram Patient Location: Bedside Room #: 353 Status: routine BSA: 2.18 HR: 76 bpm BP: 113/34 mmHg Rhythm: NSR Other Information Study Quality: Adequate Indications Diabetes Dyspnea CAD Hypertension/HDD 2D Dimensions IVSd: 11.59 (7-11mm) LVOT Diam: 20.76 (18-24mm) LVDd: 53.21 mm PWd: 12.39 (7-11mm) Ascending Ao: 27.35 (22-36mm) LVDs: 42.71 (25-40mm) Aortic Root: 28.42 mm IVC: 26.00 mm Volumes Left Atrial Volume (Systole) Single Plane 4CH: 62.56 mL Single Plane 2CH: 56.70 mL LA ESV Index: 31.00 mL/m2 Aortic Valve AoV Peak John.: 1.38 m/s AO Peak Gr.: 7.57 mmHg LVOT Max P.85 mmHg LVOT Max V: 0.84 m/s LULU Vmax: 2.07 cm2 Mitral Valve E/A Ratio: 1.9 [facility] [place] [place] [address] 2 D/M-MODE ECHOCARDIOGRAM Name: EDWAR MARCUS Room #: 353-P [facility]#: [id number] ������������� Admission: 03/12/19 ������������� Attend Phys: Angel Mariscal MD Discharge: ��� ������������� ��� Date of : 52 Date of Service: 03/20/19 1308 �� Report #: [id number] �������� ��������������������������������������������[id number] MV Decel. Time: 234.69 ms MV E Max John.: 1.64 m/s MV A John.: 0.86 m/s MV PHT: 68.06 ms IVRT: 32.30 ms Pulmonary Valve PV Peak John.: 0.80 m/s PV Peak Gr.: 2.56 mmHg Pulmonary Vein P Vein S: 0.21 m/s P Vein A: 0.19 m/s P Vein D: 0.55 m/s P Vein A Dur.: 101.5 msec P Vein S/D Ratio: 0.38 Tricuspid Valve TR Peak John.: 3.86 m/s TR Peak Gr.: 59.58 mmHg PA Pressure: 70.00 mmHg Left Ventricle The left ventricle is normal size. There is normal LV segmental wall motion. Mild concentric left ventricular hypertrophy. The left ventricular systolic function is normal. The left ventricular ejection fraction is within the normal range. LVEF is 50-55%. Grade IV - fixed restrictive diastolic dysfunction. Right Ventricle The right ventricle is normal size. The right ventricular systolic function is normal. Atria The left atrium size is normal. The right atrium size is normal. Aortic Valve The aortic valve is normal in structure. No aortic regurgitation is present. There is no aortic valvular stenosis. Mitral Valve The mitral valve is normal in structure. There is mitral annular calcification. Moderate mitral regurgitation. No evidence of mitral valve stenosis. Tricuspid Valve The tricuspid valve is normal in structure. There is mild tricuspid regurgitation. Estimated PAP 70 mmHg. There is severe pulmonary [place] [id number] 2 D/M-MODE ECHOCARDIOGRAM Name: EDWAR MARCUS Room #: 353-P [facility] IN .R.#: [id number] ������������� Admission: 03/12/19 ������������� Attend Phys: Angel Mariscal MD Discharge: ��� ������������� ��� Date of : 52 Date of Service: 03/20/19 1308 �� Report #: [id number] �������� ��������������������������������������������[id number] hypertension. Pulmonic Valve The pulmonary valve is normal in structure. There is no pulmonic valvular regurgitation. Great Vessels The aortic root is normal in size. IVC is dilated and collapses <50% with inspiration. Pericardium There is no pericardial effusion. <Conclusion> The left ventricle is normal size. LVEF is 50-55%. The aortic valve is normal in structure. The mitral valve is normal in structure. There is mitral annular calcification. Moderate mitral regurgitation. The tricuspid valve is normal in structure. There is mild tricuspid regurgitation. Estimated PAP 70 mmHg. There is severe pulmonary hypertension. The pulmonary valve is normal in structure. There is no pericardial effusion. ��������������������������������������������� <ELECTRONICALLY SIGNED> ���������������������������������������� By: Luis Burnett MD ��������������������������������������������� 03/20/19 1308 1308 1308 Luis Burnett MD /INF
[2019-03-20 15:50] VITALS: BP 110/36
--- NOTE | 2019-03-20 18:20 | NUR ---
ASSUMED PATIENT CARE AT 0700. A/O X4. PLEASANT. GENERLIZED EDEMA. LOW URINE OUTPUT. STILL ON LASIX GTT AT 10ML/H. THREE LOOSE STOOL ON THIS SHIFT. DENIES PAIN, WOUND CARE PER ORDER. ASSISTED TURN. NOT TOWARDS POC GOALS.
[2019-03-20 19:55] VITALS: BP 106/40
[2019-03-21 03:28] VITALS: BP 112/39
--- NOTE | 2019-03-21 04:17 | NUR ---
PT MAKING SLOW PROGRESS TOWARDS GOALS. PT HAS 360 ML TO DRINK, 122 ML VIA IVF/MEDICATIONS. PT URINE OUTPUT VIA BUSH CATHETER WAS 390 ML. URINE CLEAR YELLOW IN COLOR.
[2019-03-21 05:48] LABS: ALBUMIN 2.6 g/dL (3.4-5.0); CALCIUM 8.5 mg/dL (8.5-10.1); CREATININE 3.4 mg/dL (0.6-1.0); PHOSPHORUS 7.4 mg/dL (2.5-4.9)
[2019-03-21 06:04] LABS: POTASSIUM 5.5 mmol/L (3.5-5.1)
[2019-03-21 07:38] VITALS: BP 105/50
[2019-03-21 11:17] VITALS: BP 130/46
--- NOTE | 2019-03-21 12:20 | NUR ---
SW reviewed chart and spoke with nursing and attending physician. Pt has decided to start dialysis. Order for temporary dialysis catheter to be placed today in IR. No weekend discharge planned. JOSH is following to assist as needed with discharge planning.
[2019-03-21 15:49] VITALS: BP 118/37
--- NOTE | 2019-03-21 18:00 | NUR ---
PT WENT TO IR AND HAD TEMP IJ DIALYSIS CATH PLACED...REPORTS SORENESS AND TYLENOL GIVEN...PLANS TO START DIALYSIS IN AM..NEED ORDERD BUT DIALYSIS NURSE IS AWARE...
[2019-03-21 20:12] VITALS: BP 117/55
[2019-03-22 03:52] VITALS: BP 110/38
--- NOTE | 2019-03-22 04:10 | NUR ---
keeping her turned, she has complained of discomfort at her tailbone area. continues on the lasix gtt. keeping o2 sats greater than 95%, on the 3 liters n/c. her dtr stayed with her for at least 4-5 hours tonight. careplan reviewed.
[2019-03-22 05:28] LABS: HEMATOCRIT 25.5 % (37.0-47.0); HEMOGLOBIN 8.1 gm/dL (12.0-15.0); MCH 30.1 pg (26.0-34.0); MCHC 31.7 g/dL (28.0-37.0); MCV 95.2 fL (80.0-100.0); RBC 2.68 mil/uL (4.20-5.00); RDW 21.5 % (10.5-14.5); WBC 6.7 thou/uL (4.0-11.0)
[2019-03-22 05:38] LABS: ALBUMIN 2.6 g/dL (3.4-5.0); CALCIUM 8.4 mg/dL (8.5-10.1); CREATININE 3.4 mg/dL (0.6-1.0); PHOSPHORUS 7.3 mg/dL (2.5-4.9); POTASSIUM 5.1 mmol/L (3.5-5.1)
[2019-03-22 07:09] VITALS: BP 121/40
[2019-03-22 13:56] VITALS: BP 118/38
[2019-03-22 16:39] VITALS: BP 122/44
[2019-03-22 19:18] VITALS: BP 117/37
[2019-03-23 04:10] VITALS: BP 105/30
[2019-03-23 07:34] VITALS: BP 117/50
[2019-03-23 09:11] LABS: HEP B SURFACE Ab(ANTI-HBS Non Reactive (()); HEPATITIS B SURFACE AG Negative (Negative)
--- NOTE | 2019-03-23 09:22 | NUR ---
care of pt assumed this am @ 0700. pt noted to sleeping quietly and comfortably in bed. awakened by am rn and planner internship this am for dialysis. pt co poor appetite and lack of variation of menu. pt given a menu and gone through w/ rn to personalize the pt's lunch and dinner to encourage her to consume food and fluid. pt noted to be soft spoken and sad this am as compared to the last time i cared for the pt. pt denies co pain, soa and no n/v at this time. rn spoke w/ dr. harris, he states the need to convert the rt neck tessio to a chest tessio before pt dc and states he is recommending [facility] rehab for pt upon dc.
[2019-03-23 11:53] VITALS: BP 121/46
[2019-03-23 16:27] VITALS: BP 91/38
[2019-03-23 19:23] VITALS: BP 124/32
[2019-03-24 04:02] VITALS: BP 94/40
[2019-03-24 11:36] VITALS: BP 104/42
--- NOTE | 2019-03-24 12:00 | NUR ---
jayden called Juanita at [facility] and left message for her with Monica that patient won't go home so HH won't be needed.
--- NOTE | 2019-03-24 12:34 | NUR ---
PT HAD DIALYSIS TODAY AND 3L WAS REMOVED...SHE WILL OBTAIN A RT TUNNELED DIALYSIS CATH IN IR TOMORROW @ 10...IS LOOKING AT SOMETIME OF TEMP SKILLED AT DISCHARGE...
--- NOTE | 2019-03-24 14:44 | NUR ---
SW reviewed chart and spoke with nursing and attending physician. Pt had temporary dialysis catheter placed on Sunday, 03/21 and started dialysis. Pt to have dialysis today and tomorrow. SW met with pt at bedside to discuss post-acute placement: LTAC v. Acute Rehab. Pt is agreeable with having [facility] come to evaluate her. SW explained difference in LTAC level of care and provided options for the area LTACs. Pt requests referral to [facility] due to location. category planner to fax referrals to both facilities. SW notified facility liaisons of new referral. SW is following to assist as needed with discharge planning.
[2019-03-24 17:57] VITALS: BP 94/23
[2019-03-24 19:09] VITALS: BP 147/80
[2019-03-25 04:41] VITALS: BP 103/39
--- NOTE | 2019-03-25 05:14 | NUR ---
ASSUMED CARE AT 1900. PT DENIES PAIN EXCEPT ON BUTTOCK, POORLY TOLERATES LYING TO RIGHT SIDE, ONLY LIKES BEING ON THE LEFT SIDE. DENIES SOB, BUT HAS SOME CRACKLES IN THE BASES, SATTING WELL ON 3L O2. HAS BEEN SR WITH BBB AND 1ST DEG BLOCK, HR 60-70. NPO AT MIDNIGHT FOR PLACEMENT OF DIALYSIS TESSEO CATHETER. SMALL SOFT BM IN EVENING. HS BLOOD SUGAR WAS 183, PT REFUSED HS DOSE OF LISPRO BECAUSE SHE HADN'T BEEN EATING MUCH AND WOULD BE NPO AT MIDNIGHT. NO OTHER CONCERNS, WILL CONTINUE TO MONITOR.
[2019-03-25 08:38] VITALS: BP 127/38
[2019-03-25 08:39] VITALS: BP 108/34
--- NOTE | 2019-03-25 10:11 | NUR ---
dp contacted [facility] and [facility] to see if either facility can accept patient. Left message with both facilities to call back.
--- NOTE | 2019-03-25 12:05 | NUR ---
ON-GOING ASSESSMENT: CM REVIEWED CHART. PT IS UNABLE TO ACCEPT PATIENT AT THIS TIME THEY CAN NOT ACCEPT DIALYSIS PATIENTS AT THIS TIME PER THEIR LIASON. SARAHPhilip FEELS PATIENT IS MORE SUTABLE FOR LTAC. CM MET WITH PATIENT AT THE BEDSIDE AND DISCUSSED. CM DISCUSSED OTHER LTAC OPTIONS SUCH [facility]. PT STATING SHE WANTS TO CALL A FEW OF HER FAMILY MEMBERS AND IF WE COULD COME BACK THIS AFTERNOON AND SHE WILL DECIDE WHERE TO SEND REFERRALS TO.
[2019-03-25 15:58] VITALS: BP 136/74
--- NOTE | 2019-03-25 16:29 | NUR ---
pt recieving dialysis this afternoon that started around noon, after recieving a tunnel dialysis catheter this morning, Currently resting while on dialysis. Family memeber at the bed side. pt feels good and better than days before, yet appears groggy.
--- NOTE | 2019-03-25 16:38 | NUR ---
I have reviewed the student's documentation.
--- NOTE | 2019-03-25 18:00 | NUR ---
PT CONTINUES TO HAVE A VERY POOR APPETITE...SHE DRINKS MOST OF HER SUPPLEMENT BUT JUST PISCKS AT HER FOOD..
[2019-03-25 19:55] VITALS: BP 106/45
[2019-03-26 04:00] VITALS: BP 118/38
--- NOTE | 2019-03-26 05:32 | NUR ---
ASSUMED CARE AT 1900. PT DENIES PAIN OVERNIGHT. DENIES FEELING SOB, BUT CONTINUES TO HAVE CRACKLES IN LUNG BASES, SATS LOW-MID 90'S ON 3L. LEFT CHEST TESSEO HAS DRIED, BLOODY DRAINAGE, NOTHING FRESH OVERNIGHT. HAS BEEN SR W/ 1ST DEG AND BBB, HR IN 70'S. 2+ PITTING EDEMA IN LEFT LEG, MILDLY TENDER AND WARM. HS BLOOD SUGAR 203, BUT PT WAS DRINKING HER ENSURE SUPPLEMENT AND EATING A FEW BITES OF DINNER, AND HAD BEEN NPO MUCH OF THE DAY; PT REQUESTED ONLY A PARTIAL DOSE, GAVE 4 UNITS OF LISPRO. NO OTHER CONCERNS, WILL CONTINUE TO MONITOR.
--- NOTE | 2019-03-26 07:52 | NUR ---
PT IS A&0X4, QUIET SPOKEN, USES CALL LIGHT FOR NEEDS, WEARS 3L HERE AND AT HOME, LIVES ALONE, SPOKE ABOUT HOW SHE'S NOT BEEN AMBULATORY AND IS UPSET ABOUT THE PROSTHESIS, GETTING READY FOR DIALYSIS, DIALYSIS NURSE IN ROOM. STATES HE RECENTLY CAME FROM REHAB. NO MEDS TO BE GIVEN DURING DIALYSIS WILL CATCH UP LATER UNLESS TO CLOSE TO OTHER ADM TIMES. ENCOURAGED HER TO USE CALL LIGHT FOR ANY NEEDS. SEE SEPARATE INTERVENTIONS FOR ASSESSMENTS, CARDIAC MONITORED
[2019-03-26] MEDS ORDERED: SODIUM BICARBO650 M3 PO (10:44)
[2019-03-26] MEDS ORDERED: PANTOPRAZOLE SO40 M1 PO (10:45)
[2019-03-26] MEDS ORDERED: NOVOLOG100 UNIT/1 SUBQ (10:46)
[2019-03-26] MEDS ORDERED: CLOPIDOGREL75 MG PO (11:05)
--- NOTE | 2019-03-26 12:15 | NUR ---
DISCHARGE NOTE: JOSH reviewed chart and spoke with nursing and attending physician. Pt is medically stable for discharge today. SW discussed case with [facility] liaison, who confirms they are able to accept pt today. Pt currently on dialysis. Ambulance to be scheduled around 1400. JOSH met with pt at bedside to discuss discharge plan. Pt is aware and agreeable with plan. capacity planner to fax final discharge orders/summary, arrange ambulance and notify pt's family. Nursing to call report. Chart copy requested. JOSH updated [facility] liaison, who will follow pt if acute rehab is needed after LTAC stay. No further SW needs identified at this time, but is available to assist should needs arise.
--- NOTE | 2019-03-26 12:24 | NUR ---
DISCHARGE ORDERS COMPLETED PER ATTENDING. PATIENT DISCHARGING TO [facility]. CHART COPY COMPLETED PER [employer] SUPERVISOR. DISCHARGE ORDERS FAXED TO [facility], VERIFIED RECEIVED. [facility] TO TRANSPORT PATIENT, 1400 HOURS. DAUGHTER YAIR NOTIFIED. UNIT RN NOTIFIED AND CONTACT NUMBER FOR REPORT PROVIDED. UNIT SW AWARE.
--- NOTE | 2019-03-26 15:30 | NUR ---
pt left with transport with all belongings in tow on a cart including her prosthesis just about ten min ago
--- NOTE | 2019-03-26 16:32 | HC ---
[facility] [place] [address] CONSULTATION Name: EDWAR MARCUS Room #: 353-P [facility] IN M.R.#: [id number] Admission: 03/12/19 ������������������ Attend Phys: Angel Mariscal MD Discharge: 03/26/19 ������������������ Date of : 52 Report #: [id number] THIS REPORT FOR: //name// CC: Angel Garcia DATE OF SERVICE: 03/13/2019 WOUND CARE CONSULTATION PERSONAL PHYSICIAN: Dr. Trae Garcia. CHIEF COMPLAINT: Left foot wound. HISTORY OF PRESENT ILLNESS: This is a 68-year-old white female who recently had a right ciocc-fha-mwbx amputation for osteomyelitis, who recently was admitted to the acute rehab during physical therapy to learn how to use her prosthesis when she was starting to have shortness of breath and was felt to have fluid overload and hyperkalemia. On admission, the patient was noted to have a chronic wound on the left lateral foot, which we were asked to assist in the care for at this time. The patient states her right mygbn-hqc-dsci amputation stump site is actually healing well. The patient denies any pain in the left lateral foot or ulceration. PAST MEDICAL HISTORY: Significant for hypertension, type 2 diabetes, coronary artery disease, peripheral vascular disease and recent oherh-nje-ubwo amputation. CURRENT MEDICATIONS: Multiple, I reviewed the patient's medication list. DRUG ALLERGIES: METFORMIN and LYRICA. SOCIAL HISTORY: The patient denies smoking or alcohol. FAMILY HISTORY: Not pertinent to current medical condition. REVIEW OF SYSTEMS: CONSTITUTIONAL: The patient denies fevers or chills. NEUROLOGIC: The patient complains of generalized weakness, but no isolated weakness in arms or legs. EYES: No complaints. ENT: No complaints. CARDIAC: The patient has chronic lower extremity edema, but no chest pain or palpitations. RESPIRATORY: The patient was complaining of shortness of breath secondary to fluid overload, but no associated cough or wheezes. [facility] [address] [place] [address] CONSULTATION Name: EDWAR MARCUS Room #: 353-P [facility] IN [facility].#: [id number] Admission: 03/12/19 ������������������ Attend Phys: Angel Mariscal MD Discharge: 03/26/19 ������������������ Date of : 52 Report #: [id number] GASTROINTESTINAL: The patient denies nausea, vomiting or abdominal pain. GENITOURINARY: The patient denies urgency or frequency. MUSCULOSKELETAL: No complaints. SKIN: There is a chronic ulcer on the left lateral foot. PHYSICAL EXAMINATION: VITAL SIGNS: Temperature 36.4, pulse 61, respirations 18, BP 100/30. GENERAL: This is an alert and oriented x 3, pleasant white female who is in absolutely no distress. HEENT: Normocephalic, atraumatic. Mucous membranes are moist. Pupils are round. Sclerae white. NECK: Supple without JVD. LUNGS: Slightly diminished breath sounds heard throughout. Occasional scattered wheeze. HEART: Regular. ABDOMEN: Obese, soft, nontender. EXTREMITIES: The patient moves all extremities without difficulty. Evaluation of right lower extremity with BKA, which is well-healed incision without any open ulcerations. On the lateral aspect of the left foot, there is an ulceration which has essentially 100% slough. Periwound is intact without maceration or erythema. There is minimal amount of serous drainage noted without odor. There is no tunneling or undermining. There is no involvement of deeper structures. No other associated ulcerations are noted on the left foot, heel or toes. Distal pulses are 1+, sacral gluteal areas without open ulcerations. NEUROLOGIC: Cranial nerves 2-12 are grossly intact. Motor and sensory grossly intact. LABORATORY DATA: White count 5.9, hemoglobin 8.6, BUN 102, creatinine 3.1. Albumin 2.9. IMPRESSION: 1. Chronic ulceration, left lateral foot, limited to breakdown of the subcutaneous tissues. 2. Diabetes mellitus type 2. 3. Chronic kidney disease. 4. Obesity. 5. Peripheral arterial disease. 6. Chronic congestive heart failure. 7. Protein-calorie malnutrition, moderate, with albumin of 2.9. PLAN: We will continue Aquacel Ag to the left lateral foot ulcer, cover with ABD and Kerlix daily. We will encourage the patient to elevate her left lower extremity for any mild edema. We will make sure we maximize the patient's oral protein nutrition for wound healing. We will use PT, OT for strengthening. [address] [address] CONSULTATION Name: EDWAR MARCUS Room #: 353-P [facility] M.R.#: [id number] Admission: 03/12/19 ������������������ Attend Phys: Angel Mariscal MD Discharge: 03/26/19 ������������������ Date of : 52 Report #: [id number] Continue all other current medications at this time. We will continue to follow the patient. ��������������������������������������������� <ELECTRONICALLY SIGNED> ���������������������������������������� By: Ross Samson MD ��������������������������������������������� 03/26/19 [id number] Ross Samson MD /nt
== END 2019-03-26 16:20 | DRG 286 ==
LOC: ER 11:06 → 3W 13:02 → EROBS 13:02 → 3W 16:29
PROVIDERS: Emergency Medicine; Hospitalist; Internal Medicine; Nurse Practitioner; Nurse Practitioner Family; ADMIT Hospitalist
PROC: B548ZZA Ultrasonography of Superior Vena Cava, Guidance (ICD-10-PCS; principal; 2019-03-21)
PROC: B5181ZA Fluoroscopy of Superior Vena Cava using Low Osmolar Contrast, Guidance (ICD-10-PCS; principal; 2019-03-21)
PROC: 02HV33Z Insertion of Infusion Device into Superior Vena Cava, Percutaneous Approach (ICD-10-PCS; principal; 2019-03-21)
PROC: 5A1D70Z Performance of Urinary Filtration, Intermittent, Less than 6 Hours Per Day (ICD-10-PCS; 2019-03-22)
PROC: 5A1D70Z Performance of Urinary Filtration, Intermittent, Less than 6 Hours Per Day (ICD-10-PCS; 2019-03-23)
PROC: B2141ZZ Fluoroscopy of Right Heart using Low Osmolar Contrast (ICD-10-PCS; 2019-03-25)
PROC: B244ZZZ Ultrasonography of Right Heart (ICD-10-PCS; 2019-03-25)
PROC: 02H633Z Insertion of Infusion Device into Right Atrium, Percutaneous Approach (ICD-10-PCS; 2019-03-25)
PROC: 5A1D70Z Performance of Urinary Filtration, Intermittent, Less than 6 Hours Per Day (ICD-10-PCS; 2019-03-25)
PROC: 5A1D70Z Performance of Urinary Filtration, Intermittent, Less than 6 Hours Per Day (ICD-10-PCS; 2019-03-26)
DX: I13.0 Hypertensive heart and chronic kidney disease with heart failure and stage 1 through stage 4 chronic kidney disease, or unspecified chronic kidney disease (principal); J15.6 Pneumonia due to other Gram-negative bacteria; J96.21 Acute and chronic respiratory failure with hypoxia; N17.0 Acute kidney failure with tubular necrosis; I50.43 Acute on chronic combined systolic (congestive) and diastolic (congestive) heart failure; E44.0 Moderate protein-calorie malnutrition; E87.5 Hyperkalemia; L97.529 Non-pressure chronic ulcer of other part of left foot with unspecified severity; E11.22 Type 2 diabetes mellitus with diabetic chronic kidney disease; E78.5 Hyperlipidemia, unspecified; E11.51 Type 2 diabetes mellitus with diabetic peripheral angiopathy without gangrene; M19.90 Unspecified osteoarthritis, unspecified site; I25.10 Atherosclerotic heart disease of native coronary artery without angina pectoris; E11.621 Type 2 diabetes mellitus with foot ulcer; I08.1 Rheumatic disorders of both mitral and tricuspid valves; G47.33 Obstructive sleep apnea (adult) (pediatric); I89.0 Lymphedema, not elsewhere classified; E55.9 Vitamin D deficiency, unspecified; E53.8 Deficiency of other specified B group vitamins; E66.01 Morbid (severe) obesity due to excess calories; I95.9 Hypotension, unspecified; D63.8 Anemia in other chronic diseases classified elsewhere; I27.20 Pulmonary hypertension, unspecified; Z60.2 Problems related to living alone; I27.81 Cor pulmonale (chronic); N18.3 Chronic kidney disease, stage 3 (moderate); Z99.81 Dependence on supplemental oxygen; Z79.899 Other long term (current) drug therapy; Z89.511 Acquired absence of right leg below knee; Z79.4 Long term (current) use of insulin; Z79.82 Long term (current) use of aspirin; Z88.8 Allergy status to other drugs, medicaments and biological substances; Z90.710 Acquired absence of both cervix and uterus; Z90.49 Acquired absence of other specified parts of digestive tract; Z82.49 Family history of ischemic heart disease and other diseases of the circulatory system; Z68.38 Body mass index [BMI] 38.0-38.9, adult; Z83.3 Family history of diabetes mellitus; Z84.89 Family history of other specified conditions; Z89.422 Acquired absence of other left toe(s)
CPT/HCPCS: 10879; 32100

== ENCOUNTER → 2019-08-19 | Outpatient (CLI) | payer OTHER ==
[~2019-08-19] MED LIST changes: +AZITHROMYCIN 2250 MG PO; +HYDRALAZINE 2525 MG PO; +LOPERAMIDE 2 MG2 M1 PO; +MELATONIN3 MG PO; +NOVOLIN N100 UNIT/1 SUBQ; +PANTOPRAZOLE SO40 M1 PO; +SANTYL OINTMENT30 G1 TOP; +SODIUM BICARBO650 M3 PO; +VOLTAREN GEL 1100 G2 TOP; +ZYLOPRIM300 MG PO
== END ==
LOC: SJCVC 15:34
DX: Z01.810 Encounter for preprocedural cardiovascular examination (principal); I44.0 Atrioventricular block, first degree; I45.4 Nonspecific intraventricular block; I21.09 ST elevation (STEMI) myocardial infarction involving other coronary artery of anterior wall; R94.31 Abnormal electrocardiogram [ECG] [EKG]; I25.10 Atherosclerotic heart disease of native coronary artery without angina pectoris; E78.5 Hyperlipidemia, unspecified; I73.9 Peripheral vascular disease, unspecified; F32.0 Major depressive disorder, single episode, mild

== ENCOUNTER → 2019-09-11 | Outpatient (CLI) | payer OTHER | LOC: SJCVC 15:34 | DX: I25.10 Atherosclerotic heart disease of native coronary artery without angina pectoris (principal); I73.9 Peripheral vascular disease, unspecified; E78.5 Hyperlipidemia, unspecified; E11.9 Type 2 diabetes mellitus without complications; I10 Essential (primary) hypertension; Z79.899 Other long term (current) drug therapy ==